=== PATIENT | female | born 1990 | race Caucasian/White ===

== ENCOUNTER → 2020-07-19 13:16 | Outpatient (BNVA) | payer OTHER, SELFPAY | PROVIDERS: Visit Provider Advanced Practice Midwife | DX: Z30.42 Encounter for surveillance of injectable contraceptive (principal) | CPT/HCPCS: 99211 ==

== ENCOUNTER → 2020-10-04 14:58 | Outpatient (BNVA) | payer OTHER, SELFPAY | PROVIDERS: PCP Internal Medicine; Visit Provider Advanced Practice Midwife | DX: Z30.42 Encounter for surveillance of injectable contraceptive (principal) | CPT/HCPCS: 96372; 99211; J1050 ==

== ENCOUNTER → 2020-10-27 14:43 | Outpatient (BNVA) | payer OTHER, SELFPAY | PROVIDERS: PCP Internal Medicine; Visit Provider Obstetrics & Gynecology | DX: Z76.89 Persons encountering health services in other specified circumstances (principal) | CPT/HCPCS: 99395 ==

== ENCOUNTER → 2020-12-20 11:04 | Outpatient (BNVA) | payer OTHER, SELFPAY | PROVIDERS: PCP Internal Medicine; Visit Provider Advanced Practice Midwife | DX: Z30.42 Encounter for surveillance of injectable contraceptive (principal) | CPT/HCPCS: 96372; J1050 ==

== ENCOUNTER → 2021-03-14 14:38 | Outpatient (BNVA) | payer OTHER, SELFPAY | PROVIDERS: PCP Internal Medicine; Visit Provider Advanced Practice Midwife | DX: Z30.42 Encounter for surveillance of injectable contraceptive (principal) | CPT/HCPCS: 96372; 99211 ==

== ENCOUNTER → 2021-06-09 11:03 | Outpatient (BNVA) | payer OTHER, SELFPAY | PROVIDERS: PCP Internal Medicine; Visit Provider Advanced Practice Midwife | DX: Z30.42 Encounter for surveillance of injectable contraceptive (principal) | CPT/HCPCS: 96372; 99211 ==

== ENCOUNTER → 2021-08-25 14:58 | Outpatient (BNVA) | payer OTHER, SELFPAY | PROVIDERS: PCP Internal Medicine; Visit Provider Advanced Practice Midwife | DX: Z30.42 Encounter for surveillance of injectable contraceptive (principal) | CPT/HCPCS: 96372; 99211 ==

== ENCOUNTER → 2021-10-27 14:10 | Outpatient (BNVA) | payer OTHER, SELFPAY | PROVIDERS: PCP Internal Medicine; Visit Provider Advanced Practice Midwife ==

== ENCOUNTER → 2021-11-15 15:08 | Outpatient (BNVA) | payer OTHER, SELFPAY | PROVIDERS: PCP Internal Medicine; Visit Provider Advanced Practice Midwife | DX: Z30.42 Encounter for surveillance of injectable contraceptive (principal) | CPT/HCPCS: 96372 ==

== ENCOUNTER → 2022-02-10 14:56 | Outpatient (BNVA) | payer OTHER, SELFPAY | PROVIDERS: PCP Internal Medicine; Visit Provider Advanced Practice Midwife | DX: Z30.42 Encounter for surveillance of injectable contraceptive (principal) | CPT/HCPCS: 96372; 99211 ==

== ENCOUNTER → 2022-05-11 14:54 | Outpatient (BNVA) | payer OTHER, SELFPAY | PROVIDERS: PCP Internal Medicine; Visit Provider Advanced Practice Midwife | DX: Z30.42 Encounter for surveillance of injectable contraceptive (principal) | CPT/HCPCS: 96372; 99211 ==

== ENCOUNTER → 2022-08-03 13:06 | Outpatient (BNVA) | payer OTHER, SELFPAY | PROVIDERS: PCP Internal Medicine; Visit Provider Advanced Practice Midwife | DX: Z30.42 Encounter for surveillance of injectable contraceptive (principal) | CPT/HCPCS: 96372; 99211 ==

== ENCOUNTER → 2022-10-30 15:00 | Outpatient (BNVA) | payer OTHER, SELFPAY | PROVIDERS: PCP Internal Medicine; Visit Provider Advanced Practice Midwife | DX: Z30.42 Encounter for surveillance of injectable contraceptive (principal) | CPT/HCPCS: 96372; 99211 ==

== ENCOUNTER → 2023-01-22 15:00 | Outpatient (BNVA) | payer OTHER, SELFPAY | PROVIDERS: PCP Internal Medicine; Visit Provider Advanced Practice Midwife | DX: Z30.42 Encounter for surveillance of injectable contraceptive (principal) | CPT/HCPCS: 96372; 99211 ==

== ENCOUNTER 2023-03-25 12:39 | Emergency (ER) | payer OTHER, SELFPAY ==
[2023-03-25 13:16] VITALS: BP 137/74; PULSE 84; RESP 18; TEMP 36.6; O2SAT 98; BMI 35.5
--- NOTE | 2023-03-25 13:17 | ED_ITS ---
HPI - General Adult General Chief complaint: Recheck/Abnormal Lab/Rx Stated complaint: Referred by doctor / blood work? Time Seen by Provider: 03/25/23 14:57 Source: patient and old records reviewed Mode of arrival: ambulatory Limitations: no limitations History of Present Illness HPI narrative: 32-year-old female presents to the ER for evaluation of low platelet count found on routine lab work that was done 2 days ago. Patient went to her PCP at [place] due to easy bruising for the last several months. She denies any bleeding. She does not get her menstrual cycle because she is on Depo for contraception. She denies any spontaneous nose bleeds, lightheadedness, dizziness, headaches, rectal bleeding or vaginal bleeding. Patient is a 1-year-old at home, as she recalls she had unremarkable lab work and a normal vaginal delivery 2 years ago. Her lab work from [place] was reviewed[place] [address]. Her H&H is normal. MD complaint: Low platelet count. Onset (ago): day(s) (2) Associated symptoms: other (Easy bruising) Treatments prior to arrival: none Related Data Previous Rx's Medication Instructions Recorded clotrimazole-betamethasone 1 1 appl topical BID PRN itching 7 10/27/21 %-0.05 % topical cream days #45 grams medroxyprogesterone 150 mg/mL 150 mg IM [id number] 12 weeks #1 mL 01/15/23 intramuscular suspension prednisone 10 mg tablets in a dose See Taper PO DAILY #48 ea 03/25/23 pack prednisone 10 mg tablets in a dose See Taper PO DAILY #48 ea 03/25/23 pack prednisone 20 mg tablet 80 mg PO DAILY 4 days #16 tabs 03/25/23 Allergies Allergy/AdvReac Type Severity Reaction Status Date / Time promethazine [From PHENERGAN] Allergy Unknown UNKNOWN Verified 03/25/23 13:15 Review of Systems Review of Systems: Yes all other systems are reviewed and are negative [facility] Social History Social History Alcohol intake: current Alcohol intake frequency: holidays/special occasions only Patient Tobacco Use Status: Never used Tobacco Substance Use Type: Marijuana Advance Directives: No Advance Directives Information Provided: No Sexual orientation: Straight/Heterosexual Physical Exam ED Vital Signs: Vital Signs - 24 hr 03/25/23 13:16 03/25/23 14:27 Temperature 98 F 98.6 F Pulse Rate 84 81 Respiratory Rate 18 18 Blood Pressure 137/74 136/92 H Pulse Oximetry 98 97 Oxygen Delivery Method Room Air Room Air BMI result Body Mass Index 35.5 Appearance: Alert. Oriented X3. No acute distress. Head: normocephalic, atraumatic. Eyes: Pupils equal, round and reactive to light. ENT: Pharynx normal. No tonsillar swelling or exudate. Neck: Normal inspection. Neck supple. CVS: Normal heart rate and rhythm. Pulses normal. Respiratory: No respiratory distress. Breath sounds normal. Abdomen: Soft and nontender. +BS x4 Skin: Skin warm and dry. Normal skin color. Normal skin turgor. No rashes. Extremities: No lower extremity edema. No joint swelling. Neuro/psych: Oriented X 3. No motor deficit. No sensory deficit. CN II-XII intact. Normal speech and cognition. Course Course Course Narrative: RME: 32 yold female sent by PCP for low platelets count. patient denies any bleeding from any orifices. Labs ordered. patient is stable Medications Administered Discontinued Medications Generic Name Dose Route Start Last Admin Trade Name Freq PRN Reason Stop Dose Admin Prednisone 80 mg 03/25/23 16:03 03/25/23 16:10 Prednisone 20 Mg Tablet PO 03/25/23 16:04 80 mg ONCE ONE Administration Medical Decision Making Medical Decision Making MDM Narrative: 32-year-old female presents to the ER for evaluation of severe thrombocytopenia on outpatient lab work. No bleeding. Normal H&H. Her repeat platelet count today was 17,000. She has small scattered ecchymosis on her upper extremities from her 2-year-old pinching her. Otherwise no signs of trauma or large ecchymotic areas. Case was discussed with insurance sales professional/oncologist Dr. Artis. Concern is for ITP. She recommended initiation of prednisone 1 mg/kg, with a slow taper over 3 weeks. Patient was educated and counseled on diagnosis and management, and need for close follow-up. She was also given strict return precautions. Differential Diagnosis Differential Diagnoses: The differential diagnosis associated with the presentation includes ITP, autoimmune thrombocytopenia, drug induced thrombocytopenia, acute leukemia less likely Admission/Observation Consideration of admission/observation: Escalation of care including admission/observation considered Severe thrombocytopenia, considered admission for observation and possible transfusion of platelets. Consult Healthcare Provider Management of the patient was discussed with: [facility] Keeper Spoke with Dr. Artis who recommended initiation of prednisone 1 milligram/kilogram with a slow taper for 3 weeks. Lab Data MDM Lab Attestation statement: I reviewed the patient's lab results. Severe thrombocytopenia with normal H&H 03/25/23 13:34 03/25/23 13:34 Labs: Lab Results 03/25/23 03/25/23 Range/Units 13:34 13:34 WBC 8.3 (4.8-10.8) X10*3/uL RBC 4.65 (4.20-5.50) X10*6/uL Hgb 13.0 (12.0-16.0) g/dl Hct 37.8 (37.0-47.0) % MCV 81.3 (80.0-98.0) fL MCH 28.0 (27.0-33.0) pg MCHC 34.4 (31.0-35.0) g/dl RDW 12.8 (11.0-16.0) % Plt Count 17 L* (160-400) X10*3/uL MPV Not Reportable Immature Gran % (Auto) 0.6 H (0.0-0.4) % Neut % (Auto) 61.6 (45-73) % Lymph % (Auto) 28.9 (20-40) % Duval % (Auto) 7.3 (2-11) % Eos % (Auto) 1.1 (0-4) % Baso % (Auto) 0.5 (0-2) % Lymph # (Auto) 2.4 (1.2-4.9) X10*3/uL Duval # (Auto) 0.6 (0.1-1.2) X10*3/uL Eos # (Auto) 0.1 (0.0-0.4) X10*3/uL Baso # (Auto) 0.0 (0.0-0.2) X10*3/uL Abs Immat Gran (auto) 0.05 H (0.00-0.03) X10*3/uL Absolute Neuts (auto) 5.1 (2.0-8.3) x10*3/uL Absolute Nucleated RBC 0.000 (0.0-0.012) X10*3/uL Nucleated RBC % (auto) 0.0 (0.0-0.2) /100WBC Sodium 145 (135-145) mmol/L Potassium 3.6 (3.3-5.1) mmol/L Chloride 111 H (96-108) mmol/L Carbon Dioxide 26 (22-29) mmol/L Anion Gap 12 (12-20) BUN 8 L (9-16) mg/dL Creatinine 0.68 (0.5-1.4) mg/dL Estim Creat Clear Calc 110.9 Estimated GFR > 60 Random Glucose 97 (60-115) mg/dL Calcium 9.3 (8.4-10.2) mg/dL Total Bilirubin 0.4 (0.0-1.0) mg/dL AST 12 (5-31) U/L ALT 20 (0-31) U/L Alkaline Phosphatase 82 (39-117) U/L Total Protein 7.2 (6.5-8.0) g/dL Albumin 4.2 (3.5-5.0) g/dL External Record Review External record reviewed: Office record Prescription Management I considered prescription management with: Other (Prednisone) Critical Care Time Critical Care Time Critical Care Time: Yes Total Critical Care Time: 35 Attestation: I have personally provided critical care time exclusive of time spent on separately billable procedures. Time includes review of lab data, discussion with consultants, and monitoring for potential decompensation. Intervention performed as documented. Discharge Plan Discharge Clinical Impression: Thrombocytopenia Patient Disposition: Home, Self-Care Instructions: Thrombocytopenia (ED) Additional Instructions: take the prescribed steroid medication as directed - take 80 mg daily and taper by 10 mg every 3 days. call heme/onc office tomorrow to arrange follow up If you develop new or worsening symptoms call 911 or come back to the ER for further evaluation. Prescriptions: New prednisone 20 mg tablet 80 mg PO DAILY 4 Days Qty: 16 0RF prednisone 10 mg tablets,dose pack See Taper PO DAILY Qty: 48 0RF Taper: Prednisone 70 mg daily for 3 Days and 0 Hour 60 mg daily for 3 Days and 0 Hour 50 mg daily for 1 Day prednisone 10 mg tablets,dose pack See Taper PO DAILY Qty: 48 0RF Taper: Prednisone 50 mg daily for 3 Days and 0 Hour 40 mg daily for 3 Days and 0 Hour 30 mg daily for 3 Days and 0 Hour 20 mg daily for 3 Days and 0 Hour 10 mg daily for 3 Days No Action medroxyprogesterone 150 mg/mL suspension 150 mg IM [id number] 84 Days Qty: 1 0RF medroxyprogesterone [Depo-Provera] 150 mg/mL syringe 150 mg IM Q12W Qty: 1 0RF clotrimazole-betamethasone 1-0.05 % cream 1 appl topical BID PRN (Reason: itching) 7 Days Qty: 45 0RF [place] [facility] [place]ology [Provider Group] (platelets 17K) Interventions: ED Discharge Assessment Last Done: 03/25/23 16:19 Discharge Date/Time: 03/25/23 16:19
[2023-03-25 13:40] LABS: MANUAL DIFF FLAG NO
[2023-03-25 14:01] LABS: Basophils Percent Auto 0.5 % (0-2); Eosinophils Absolute Auto 0.1 X10*3/uL (0.0-0.4); Eosinophils Percent Auto 1.1 % (0-4); Hematocrit 37.8 % (37.0-47.0); Imm Gran Abs Auto 0.05 X10*3/uL (0.00-0.03); Imm Gran Pct Auto 0.6 % (0.0-0.4); Lymphocytes Absolute Auto 2.4 X10*3/uL (1.2-4.9); Lymphocytes Percent Auto 28.9 % (20-40); Mean Corpuscular HGB Conc 34.4 g/dl (31.0-35.0); Mean Corpuscular Volume 81.3 fL (80.0-98.0); Monocytes Absolute Auto 0.6 X10*3/uL (0.1-1.2); Monocytes Percent Auto 7.3 % (2-11); Neutrophils Absolute Auto 5.1 x10*3/uL (2.0-8.3); Neutrophils Percent Auto 61.6 % (45-73); Red Blood Count 4.65 X10*6/uL (4.20-5.50); Red Cell Distribution Width 12.8 % (11.0-16.0); White Blood Count 8.3 X10*3/uL (4.8-10.8)
[2023-03-25 14:02] LABS: Alanine Aminotransferase 20 U/L (0-31); Albumin Level 4.2 g/dL (3.5-5.0); Alkaline Phosphatase 82 U/L (39-117); Anion Gap 12 (12-20); Aspartate Amino Transferase 12 U/L (5-31); Bilirubin Total 0.4 mg/dL (0.0-1.0); Blood Urea Nitrogen 8 mg/dL (9-16); Calcium 9.3 mg/dL (8.4-10.2); Carbon Dioxide 26 mmol/L (22-29); Chloride 111 mmol/L (96-108); Creatinine Clr Calc Pharmacy 110.9; Estimated Glomerular Filt Rate > 60; Glucose Random 97 mg/dL (60-115); Potassium 3.6 mmol/L (3.3-5.1); Sodium 145 mmol/L (135-145); Total Protein 7.2 g/dL (6.5-8.0)
[2023-03-25 14:06] LABS: Platelet Count 17 X10*3/uL (160-400)
[2023-03-25 14:27] VITALS: BP 136/92; PULSE 81; RESP 18; TEMP 37; O2SAT 97
--- NOTE | 2023-03-25 15:16 | PC.NURSE ---
pt sitting in bed, resting. respirations equal and unlabored.
== END 2023-03-25 16:19 | disposition home or self-care (01) ==
PROVIDERS: Physician Assistant; Emergency Provider Emergency Medicine; PCP Internal Medicine
DX: D69.49 Other primary thrombocytopenia (principal); Z79.899 Other long term (current) drug therapy
CPT/HCPCS: 36415; 80053; 85025; 99284

== ENCOUNTER 2023-04-05 15:17 | Outpatient (REF) | payer OTHER, SELFPAY ==
[2023-04-05 15:36] LABS: MANUAL DIFF FLAG NO
[2023-04-05 15:55] LABS: Basophils Percent Auto 0.2 % (0-2); Hematocrit 41.5 % (37.0-47.0); Hemoglobin 14.1 g/dl (12.0-16.0); Imm Gran Abs Auto 0.12 X10*3/uL (0.00-0.03); Imm Gran Pct Auto 0.6 % (0.0-0.4); Lymphocytes Absolute Auto 1.4 X10*3/uL (1.2-4.9); Lymphocytes Percent Auto 7.1 % (20-40); Mean Corpuscular Hemoglobin 28.4 pg (27.0-33.0); Mean Corpuscular Volume 83.5 fL (80.0-98.0); Mean Platelet Volume 12.6 fL (9.4-12.3); Monocytes Absolute Auto 0.4 X10*3/uL (0.1-1.2); Monocytes Percent Auto 2.1 % (2-11); Neutrophils Absolute Auto 17.2 x10*3/uL (2.0-8.3); Red Blood Count 4.97 X10*6/uL (4.20-5.50); Red Cell Distribution Width 13.9 % (11.0-16.0); White Blood Count 19.1 X10*3/uL (4.8-10.8)
[2023-04-05 16:07] LABS: Platelet Count 43 X10*3/uL (160-400)
[2023-04-05 16:49] LABS: Lactate Dehydrogenase 237 U/L (122-220)
[2023-04-05 17:18] LABS: Folate 14.3 ng/mL (> or = 4.0); Vitamin B12 329 pg/mL (200-900)
== END 2023-04-05 15:18 | disposition home or self-care (01) ==
LOC: HO.LAB 15:17
PROVIDERS: PCP Internal Medicine; Visit Provider Internal Medicine
DX: D69.6 Thrombocytopenia, unspecified (principal)
CPT/HCPCS: 36415; 82607; 82746; 83615; 85025

== ENCOUNTER 2023-04-18 12:46 | Outpatient (AMB) | payer OTHER, SELFPAY ==
--- NOTE | 2023-04-18 12:47 | A.OFFVIS_ITS ---
Intake Intake Visit Reasons: TV follow up [phone] work # Intake Note: [phone] option 1 then 3 The patient agreed to use of a quality engineer medical device during this encounter. Scribed for RUBI Garcia by Soco Dowell, quality engineer medical device, on 04/18/2023 at 12:53 pm EST. Allergies promethazine [From PHENERGAN] Allergy (Unknown, Verified 04/18/23 12:47) UNKNOWN HPI HPI Comments History of Present Illness Details Telehealth visit 12:53 pm -12:58 pm. Phone Call due to Covid-19 Pandemic. She presents via phone for medical review for Depo Provera refills due to annual examination postponements. Last annual 10/2021. Doing well on Depo, other than occasional spotting. Next Depo due by 04/23/23. She denies any contraindications to control such as: migraines with aura, history of DVT or pulmonary emboli, high blood pressure, liver disease, thrombolic disorders, Lupus, +ZOË, or smoking. [facility] Medical History (Updated 04/18/23 @ 12:55 by Soco Dowell) Surveillance for Depo-Provera contraception Social History Alcohol intake: current Alcohol intake frequency: holidays/special occasions only Patient Tobacco Use Status: Never used Tobacco Substance Use Type: Marijuana Sexual orientation: Straight/Heterosexual Female Reproductive History Menstrual Age of Menarche: 8 control method: progesterone injection Total pregnancies: 0 Physical Exam Const General: cooperative, healthy appearing, comfortable, no acute distress, well developed, alert and awake Assessment & Plan Assessment & Plan (1) Surveillance for Depo-Provera contraception: Code(s): Z30.42 - Encounter for surveillance of injectable contraceptive Plan: Discussed: Schedule Depo injection appointment. Order placed, new refills to be given at the next annual, appt. in May, move up annual appt. if availalbe appt. She was instructed to go to ER if she develops loss of vision, severe headache that does not resolve, chest pain, difficulty breathing, abdominal pain, or severe pain or tenderness in extremity or new breast lumps. Call the office with any concerns. All of her questions and concerns were addressed to the best of my ability and shared decision making. She is agreeable to plan of care. Telehealth Telehealth Location of provider rendering services: practice address Location of patient: other Patient Identification confirmed using: Name, : Yes Telehealth method: voice only Patient verbally consented to treatment: Yes Patient verbally consented to billing insurance company: Yes Patient informed of any privacy concerns related to visit: Yes Coding Level of Care Code Tele Est Pt Level 2 (54450) Diagnoses Surveillance for Depo-Provera contraception Z30.42
== END 2023-04-18 14:29 | disposition home or self-care (01) ==
LOC: HO.HWS 12:46
PROVIDERS: PCP Internal Medicine; Visit Provider Advanced Practice Midwife
DX: Z30.42 Encounter for surveillance of injectable contraceptive (principal)
CPT/HCPCS: 99212

== ENCOUNTER → 2023-04-18 12:46 | Outpatient (BNVA) | payer OTHER, SELFPAY | PROVIDERS: PCP Internal Medicine; Visit Provider Advanced Practice Midwife ==

== ENCOUNTER 2023-04-19 07:52 | Outpatient (AMB) | payer OTHER, SELFPAY ==
--- NOTE | 2023-04-19 07:55 | A.OFFVIS_ITS ---
Intake Vital Signs 04/19/23 07:57 Height 5 ft Weight 183 lb BMI 35.7 BP 110/76 Intake Visit Reasons: Annual/Depo Intake Note: The patient agreed to use of a medical laboratory manager during this encounter. Scribed for RUBI Garcia by Soco Dowell medical laboratory manager, on 04/19/2023 at 8:09 am EST. Data Input Clerk: Data Input Clerk Present (Neha) Allergies promethazine [From PHENERGAN] Allergy (Unknown, Verified 04/19/23 08:01) UNKNOWN HPI HPI Comments History of Present Illness Details She is a premenopausal woman presenting for annual exam. She had a recent diagnosis of thrombocytopenia and has a hematology follow up on 05/09. She admits to eating healthy and tries to stay active with exercise. Currently sexually active. Uses Depo for BC and is doing fine. Admits vaginal itching. STD screening and blood work offered; she accepts. Denies family hx of breast, colon and ovarian cancer. Last pap smear 10/15/19; negative, negative. She denies any contraindications to control such as: migraines with aura, history of DVT or pulmonary emboli, high blood pressure, liver disease, thrombolic disorders, Lupus, +ZOË, or smoking. Reviewed use, side effects and warnings including ACHES. [facility] Medical History Cervical polyp Surveillance for Depo-Provera contraception Thrombocytopenia Family History Maternal Grandmother Diabetes Mother Diabetes Social History Alcohol intake: current Alcohol intake frequency: holidays/special occasions only Patient Tobacco Use Status: Never used Tobacco Substance Use Type: Marijuana Sexual orientation: Straight/Heterosexual Female Reproductive History Menstrual Age of Menarche: 8 control method: progesterone injection Total pregnancies: 4 Full term: 3 Number of Living Children: 3 Ab spontaneous: 1 Date of last pap smear: 10/15/19 (neg pap and hpv) Physical Exam Vital Signs: Last Vital Signs BP 110/76 04/19/23 07:57 BMI result Body Mass Index 35.7 Const General: cooperative, healthy appearing, no acute distress, well developed and alert Orientation/consciousness: patient oriented x3 HEENT Head: Yes normal to inspection Eyes General: appearance normal, both eyes and all related structures Neck Neck: Yes normal visual inspection Thyroid: Thyroid normal Chest Chest palpation & inspection: normal inspection of the chest Breast/axilla inspection: normal inspection of the breasts (no puckering, dimpling, peau de orange, retraction, discharge, masses) Breast/axilla palpation: normal palpation of the breasts Resp Effort & Inspection: normal respiratory effort GI Inspection: Yes normal to inspection Palpation (GI): Soft to palpation (to palpation) Rectal Exam - Female: deferred General: Yes bladder normal to inspection External Female Exam: normal external appearance and normal appearance of the urethra Speculum Exam - Vagina: normal appearance of the vagina, normal palpation and normal vaginal discharge Speculum Exam - Cervix: normal palpation and Other cervical findings present (cervical polyp) Bimanual exam- vagina & uterus: normal palpation and normal palpation Bimanual Exam- Adnexa, other: normal adnexae and no masses Skin Other: multiple bruising on extremities General skin exam: no rashes or lesions noted Neuro General: patient oriented x3 Cognition (Neuro): normal cognition Extrem General: Yes normal to inspection Psych Attitude: cooperative Thought process: Normal thought process present Assessment & Plan Assessment & Plan (1) Encounter for annual routine gynecological examination: Code(s): Z01.419 - Encounter for gynecological examination (general) (routine) without abnormal findings Plan: Discussed: Current recommendations for pap smears per ASCCP guidelines Breast awareness and periodic self breast exams. Maintaining a healthy lifestyle including a well balanced diet and routine exercise. Consult with Dr. Celis regarding cervical polyp. Lab work ordered. BV testing and GC/CT panel today. STD blood work ordered. Await results and treat accordingly. Instructed to monitor periods and contact the office with any concerns. Rx for Depo sent to pharmacy. Instructed to sheepskin pickler rx and bring to office with her. She was instructed to go to ER if she develops loss of vision, severe headache that does not resolve, chest pain, difficulty breathing, abdominal pain, or severe pain or tenderness in extremity or new breast lumps. Call the office with any concerns. All of her questions and concerns were addressed to the best of my ability. RTO in one year for AG. (2) Surveillance for Depo-Provera contraception: Code(s): Z30.42 - Encounter for surveillance of injectable contraceptive (3) Vaginal itching: Code(s): N89.8 - Other specified noninflammatory disorders of vagina (4) Cervical polyp: Code(s): N84.1 - Polyp of cervix uteri (5) Thrombocytopenia: Code(s): D69.6 - Thrombocytopenia, unspecified (6) Thrombocytopenia: Code(s): D69.6 - Thrombocytopenia, unspecified Orders: Orders Bacterial Vaginosis Panel Today N89.8 - Other specified noninflammatory disorders of vagina CT NG by PCR Today N89.8 - Other specified noninflammatory disorders of vagina, Z20.2 - Contact with and (suspected) exposure to infections with a predominantly sexual mode of transmission Medications: Refilled medroxyprogesterone 150 mg IM [id number] 1 mL 4RF 12 weeks Coding Level of Care Code Est Pt Prev Care 18-39y(63774) Diagnoses Encounter for annual routine gynecological examination Z01.419 Surveillance for Depo-Provera contraception Z30.42 Vaginal itching N89.8 Cervical polyp N84.1 Thrombocytopenia D69.6
[2023-04-19 07:57] VITALS: BP 110/76; BMI 35.7
== END 2023-04-19 09:00 | disposition home or self-care (01) ==
LOC: HO.HWS 07:52
PROVIDERS: PCP Internal Medicine; Visit Provider Advanced Practice Midwife
DX: Z01.419 Encounter for gynecological examination (general) (routine) without abnormal findings (principal); N89.8 Other specified noninflammatory disorders of vagina; N84.1 Polyp of cervix uteri; D69.6 Thrombocytopenia, unspecified
CPT/HCPCS: 99395

== ENCOUNTER 2023-04-19 07:52 | Outpatient (REF) | payer OTHER, SELFPAY ==
[2023-04-20 03:04] LABS: CT PCR NOT DETECTED (Not Detect.); NG PCR NOT DETECTED (Not Detect.)
[2023-04-20 09:36] LABS: BV Int Neg Control Negative (Negative); BV Int Pos Control Positive (Positive)
== END 2023-04-19 07:53 | disposition home or self-care (01) ==
LOC: HO.LNP 07:52
PROVIDERS: PCP Internal Medicine; Visit Provider Advanced Practice Midwife
DX: N89.8 Other specified noninflammatory disorders of vagina (principal); Z20.2 Contact with and (suspected) exposure to infections with a predominantly sexual mode of transmission; N84.1 Polyp of cervix uteri; D69.6 Thrombocytopenia, unspecified
CPT/HCPCS: 0353U; 87480; 87510; 87660

== ENCOUNTER 2023-04-19 08:41 | Outpatient (REF) | payer OTHER, SELFPAY | END 2023-04-19 08:42 | disposition home or self-care (01) | LOC: HO.LAB 08:41 | PROVIDERS: Visit Provider Advanced Practice Midwife | DX: Z13.89 Encounter for screening for other disorder (principal) ==

== ENCOUNTER 2023-04-23 15:07 | Outpatient (AMB) | payer OTHER, SELFPAY ==
--- NOTE | 2023-04-23 15:29 | AM.OFFVISNUR ---
Intake Intake Visit Reasons: Depo Allergies promethazine [From PHENERGAN] Allergy (Unknown, Verified 04/19/23 08:01) UNKNOWN Coding Diagnoses
--- NOTE | 2023-04-23 15:29 | AM.OFFVISNUR ---
Intake Vital Signs 04/23/23 15:30 Height 5 ft Weight 82.157 kg BMI 35.4 Intake Visit Reasons: Depo Allergies promethazine [From PHENERGAN] Allergy (Unknown, Verified 04/19/23 08:01) UNKNOWN Nursing Note Pt is here for Depo-Provera restart. Preg test neg. Pt recently diagnosed with thrombocytopenia. Pressure dsg applied. Pt watched for 15 min. No active bleeding. 1 tiny drop on bandaid prior to pressure dsg placed as precaution. Office Procedures Depo Questionnaire If YES to any of the following questions, please consult a provider. Date of last injection: 04/23/23 test in office results: Negative Irregular bleeding?: No Breast lumps or other breast changes?: No Changes in weight or appetite?: No Depression or changes in mood?: No Abnormal hair growth or loss?: No Skin problems (rash, acne, discoloration)?: No Pain at the injection site?: No Headaches?: No Nervousness?: No Abdominal pain or cramping?: No Dizziness or nausea?: No Fatigue or weakness?: No Decrease in sexual drive?: No Chest pain or shortness of breath?: No Swelling in arms or legs?: No Form completed by?: Jaycee Ritter LPN Office Meds Depo-Provera Performing Provider: Celeste Pino CNM Administered by: Maryana Ritter LPN on 04/23/23 15:32 Dose Route Admin Location Lot Number Expiration Date NDC [employer] 150 mg IM left deltoid [id number] 06/16/25 [id number] [facility] Results AMB Test Urine AMB Test Urine Negative Last Edit by Maryana Ritter LPN on 04/23/23 15:36 Coding Level of Care Code Established Pt Est Pt Level 1 (28018) Patient Type Established History Problem Focused Exam Problem Focused Medical Decision Making Straight Forward Diagnoses Time Spent (min) 25 Assessment & Plan Assessment & Plan Orders: Orders AMB Medroxyprogesterone Injection Patient Supplied Today Z30.42 - Encounter for surveillance of injectable contraceptive
[2023-04-23 15:30] VITALS: BMI 35.4
== END 2023-04-23 16:22 | disposition home or self-care (01) ==
LOC: HO.HWS 15:07
PROVIDERS: PCP Internal Medicine; Visit Provider Advanced Practice Midwife
DX: Z30.42 Encounter for surveillance of injectable contraceptive (principal)

== ENCOUNTER → 2023-04-23 15:07 | Outpatient (BNVA) | payer OTHER, SELFPAY | PROVIDERS: PCP Internal Medicine; Visit Provider Advanced Practice Midwife | DX: Z30.42 Encounter for surveillance of injectable contraceptive (principal) | CPT/HCPCS: 96372; 99211; J1050 ==

== ENCOUNTER → 2023-05-09 08:52 | Outpatient (BNV) | payer OTHER, SELFPAY | PROVIDERS: PCP Internal Medicine; Referring Provider Internal Medicine; Visit Provider Internal Medicine | DX: D69.6 Thrombocytopenia, unspecified (principal) | CPT/HCPCS: 99204 ==

== ENCOUNTER 2023-05-10 10:59 | Outpatient (REF) | payer OTHER, SELFPAY | END 2023-05-10 11:00 | disposition home or self-care (01) | LOC: HO.MDS 10:59 | PROVIDERS: PCP Internal Medicine; Visit Provider Internal Medicine | DX: D69.3 Immune thrombocytopenic purpura (principal) | CPT/HCPCS: 96365; 96366; J1569 ==

== ENCOUNTER → 2023-10-22 10:57 | Outpatient (BNVA) | payer OTHER, SELFPAY | PROVIDERS: PCP Internal Medicine; Visit Provider Advanced Practice Midwife ==

== ENCOUNTER 2023-10-24 09:29 | Outpatient (AMB) | payer OTHER, SELFPAY ==
--- NOTE | 2023-10-24 09:30 | A.OFFVIS_ITS ---
Intake Vital Signs 10/24/23 09:31 Height 5 ft Weight 196 lb BMI 38.3 BP 102/66 Intake Visit Reasons: restart DEPO Intake Note: Would like to restart depo Estate Planning Paralegal Required: No Allergies promethazine [From PHENERGAN] Allergy (Intermediate, Verified 10/24/23 09:32) Agitated Medication List - Last Reconciled 10/24/23 by Karlee Jovel CNM cyanocobalamin (vitamin B-12) 1,000 mcg PO DAILY medroxyprogesterone 150 mg IM [id number] 12 weeks Post menopausal: No HPI restart DEPO HPI Details Patient is here for Depo restart consult. She missed her last Depo because she was in the hospital at [facility] she then went to the office when her next Depo was due in September and she said there was an appointment mix up and because they did not have the records they were unable to give her the Depo and she had records from [facility] but they did not include the giving of the Depo- Provera she went back to [facility] got those records gave them to Alexandrea recently and they have been scanned into the chart now and I have found them. The patient says she was hospitalized for bruising and she turned out to have very low platelets and she received transfusions and per the records she also received IV platelets and IV steroids. She was given the Depo-Provera 1 week early because she was also bleeding at the time. Her Depo-Provera dates are as follows April 23 then July 08 at [facility] in the hospital at 11 weeks, and she would have been due for the next Depo October 01. She is now 3 weeks later than that her last unprotected intercourse was October 16 she says she does not have sex very often and because it is with the same partner she does not use condoms. She does not want to have a baby she also is on antibiotics for a stomach bacteria H pylori. She said that they did not see a polyp in her cervix when they were checking her for the bleeding cause when she was in the hospital at [facility]. She also says she had a Mirena IUD after the of her daughter but it fell out she thinks it was put in about a month . She was thinking about getting her tubes tied. She is undergoing treatment for the thrombocytopenia with weekly injections from Hematology. I did discuss with her that she might be considered high risk for surgery at this particular point in time and consideration for a Mirena IU S might be a better long-term way to go. This can be considered further after we get her protected from with a re start of her Depo-Provera. test is negative today. We can see her again in 6 days on October 30 and if the test is again negative that will be 2 weeks of negative after the last unprotected intercourse which she says she will refrain from, and then she can receive Depo-Provera on October 30. I also cautioned that she will need to use condoms for the 2 weeks after that until the Depo- Provera as fully effective again. She is in agreement with this plan. [facility] Medical History (Updated 10/24/23 @ 10:26 by Karlee Jovel CNM) Thrombocytopenia Cervical polyp Surveillance for Depo-Provera contraception Family History Maternal Grandmother Diabetes Mother Diabetes Social History Household Members: Children Housing: House Alcohol intake: current Alcohol intake frequency: holidays/special occasions only Patient Tobacco Use Status: Never used Tobacco Substance Use Type: Marijuana service: No Current occupational status: employed Sexual orientation: Straight/Heterosexual Female Reproductive History Menstrual Age of Menarche: 8 control method: none Total pregnancies: 4 Full term: 3 Number of Living Children: 3 Ab spontaneous: 1 Date of last pap smear: 10/16/19 (negative) Physical Exam Vital Signs: Last Vital Signs BP 102/66 10/24/23 09:31 BMI result Body Mass Index 38.3 Results Reviewed Results Reviewed: Preg test negative Also reviewed the note from July 08 from [facility] inpatient citing her course with the thrombocytopenia and treatment with transfusion IV platelets and steroids and Depo-Provera.. Assessment & Plan Assessment & Plan (1) Thrombocytopenia: Code(s): D69.6 - Thrombocytopenia, unspecified (2) Surveillance for Depo-Provera contraception: Comment: See details of notes for restart...10/24/23 Code(s): Z30.42 - Encounter for surveillance of injectable contraceptive (3) Contraception management: Comment: Will restart Depo-Provera after 2 weeks of no UPI, and negative preg test. Consideration to use of Mirena long-term recommended... Code(s): Z30.9 - Encounter for contraceptive management, unspecified Plan Patient is here for Depo restart consult. She missed her last Depo because she was in the hospital at [facility] she then went to the office when her next Depo was due in September and she said there was an appointment mix up and because they did not have the records they were unable to give her the Depo and she had records from [facility] but they did not include the giving of the Depo-Provera she went back to [facility] got those records gave them to Alexandrea recently and they have been scanned into the chart now and I have found them. The patient says she was hospitalized for bruising and she turned out to have very low platelets and she received transfusions and per the records she also received IV platelets and IV steroids. She was given the Depo-Provera 1 week early because she was also bleeding at the time. Her Depo-Provera dates are as follows April 23 then July 08 at [facility] in the hospital at 11 weeks, and she would have been due for the next Depo October 01. She is now 3 weeks later than that her last unprotected intercourse was October 16 she says she does not have sex very often and because it is with the same partner she does not use condoms. She does not want to have a baby she also is on antibiotics for a stomach bacteria H pylori. She said that they did not see a polyp in her cervix when they were checking her for the bleeding cause when she was in the hospital at [facility]. She also says she had a Mirena IUD after the of her daughter but it fell out she thinks it was put in about a month . She was thinking about getting her tubes tied. She is undergoing treatment for the thrombocytopenia with weekly injections from Hematology. I did discuss with her that she might be considered high risk for surgery at this particular point in time and consideration for a Mirena IU S might be a better long-term way to go. This can be considered further after we get her protected from with a re start of her Depo-Provera. test is negative today. We can see her again in 6 days on October 30 and if the test is again negative that will be 2 weeks of negative after the last unprotected intercourse which she says she will refrain from, and then she can receive Depo-Provera on October 30. I also cautioned that she will need to use condoms for the 2 weeks after that until the Depo- Provera as fully effective again. She is in agreement with this plan. Medications: Refilled medroxyprogesterone 150 mg IM [id number] 12 weeks 1 mL 4RF Coding Level of Care Code Est Pt Level 3 (06815) Diagnoses Thrombocytopenia D69.6 Surveillance for Depo-Provera contraception Z30.42 Contraception management Z30.9
[2023-10-24 09:31] VITALS: BP 102/66; BMI 38.3
== END 2023-10-24 10:22 | disposition home or self-care (01) ==
LOC: HO.HWSM 09:29
PROVIDERS: PCP Internal Medicine; Visit Provider Advanced Practice Midwife
DX: D69.6 Thrombocytopenia, unspecified (principal); Z30.42 Encounter for surveillance of injectable contraceptive; Z30.9 Encounter for contraceptive management, unspecified
CPT/HCPCS: 99213

== ENCOUNTER → 2023-10-24 09:29 | Outpatient (BNVA) | payer OTHER, SELFPAY | PROVIDERS: PCP Internal Medicine; Visit Provider Advanced Practice Midwife | DX: Z30.42 Encounter for surveillance of injectable contraceptive (principal); D69.6 Thrombocytopenia, unspecified; Z30.9 Encounter for contraceptive management, unspecified | CPT/HCPCS: 99212 ==

== ENCOUNTER 2023-10-31 15:07 | Outpatient (AMB) | payer OTHER, SELFPAY ==
[2023-10-31 16:02] VITALS: BMI 39.3
--- NOTE | 2023-10-31 16:02 | AM.OFFVISNUR ---
Intake Vital Signs 10/31/23 16:02 Height 5 ft Weight 201 lb BMI 39.3 Intake Visit Reasons: DEPO Intake Note: Pt is here for Depo provera restart Hadoop Admin Required: No Allergies promethazine [From PHENERGAN] Allergy (Intermediate, Verified 10/24/23 09:32) Agitated Is last menstrual period known: No Post menopausal: No Patient : No Nursing Note Armida is here for Depo provera restart. Pt denies UPI in last 2 weeks and UPT today is negative. No c/o. Pt tolerated injection well. Pt was advised to use back up method of control x2 weeks. Pt verbalizes understanding and agrees with plan. No further questions. Pt will schedule next injection in 12 weeks. Office Procedures Depo Questionnaire If YES to any of the following questions, please consult a provider. Menstrual pattern since last injection has been: Not Applicable test in office results: Negative Irregular bleeding?: No Breast lumps or other breast changes?: No Changes in weight or appetite?: No Depression or changes in mood?: No Abnormal hair growth or loss?: No Skin problems (rash, acne, discoloration)?: No Pain at the injection site?: No Headaches?: No Nervousness?: No Abdominal pain or cramping?: No Dizziness or nausea?: No Fatigue or weakness?: No Decrease in sexual drive?: No Chest pain or shortness of breath?: No Swelling in arms or legs?: No Form completed by?: Maryam Wallace RN Office Meds Depo-Provera 150 mg/mL intramuscular syringe Performing Provider: Kj Celis MD Performing Location[place] [facility] [place] [facility] Administered by: Maryam Wallace on 10/31/23 16:09 Dose Route Admin Location Dispensed Lot Number Expiration Date [facility] V[employer] 150 mg IM left deltoid 1 mL [id number] 12/15/25 56366-293-46 [facility] Results AMB Test Urine AMB Test Urine Negative Last Edit by Maryam Wallace on 10/31/23 16:09 Coding Level of Care Code Established Pt Est Pt Level 1 (52735) Patient Type Established History Problem Focused Medical Decision Making Straight Forward Time Spent (min) 15 Comment Assessment & Plan Assessment & Plan Orders: Orders AMB Medroxyprogesterone Injection Patient Supplied Today Z30.42 - Encounter for surveillance of injectable contraceptive
== END 2023-10-31 16:13 | disposition home or self-care (01) ==
PROVIDERS: PCP Internal Medicine; Visit Provider Obstetrics & Gynecology
DX: Z30.42 Encounter for surveillance of injectable contraceptive (principal)

== ENCOUNTER → 2023-10-31 15:07 | Outpatient (BNVA) | payer OTHER, SELFPAY | PROVIDERS: PCP Internal Medicine; Visit Provider Obstetrics & Gynecology | DX: Z30.42 Encounter for surveillance of injectable contraceptive (principal) | CPT/HCPCS: 96372; 99211; J1050 ==

== ENCOUNTER 2023-12-20 16:08 | Outpatient (AMB) | payer OTHER, SELFPAY ==
--- NOTE | 2023-12-20 16:18 | A.OFFVIS_ITS ---
Intake Vital Signs 12/20/23 16:19 Height 5 ft Weight 201 lb BMI 39.3 BP 122/72 Blood Pressure Location Lt brachial Position Sitting Intake Visit Reasons: Cervical Polyp consult per Celeste Compliance Field Technician Required: No Information Interpreted: non-clinical & clinical Tobacco Prizer: Tobacco Prizer Present Accompanied by: Self / Same As Patient Allergies promethazine [From PHENERGAN] Allergy (Intermediate, Verified 12/20/23 16:19) Agitated Is last menstrual period known: Yes Last menstrual period: 07/15/20 Post menopausal: No Patient : No Do you need a note to return to daycare/school/sports/work: Yes (for surgery on sunday) HPI HPI Comments History of Present Illness Details Presenting referred from Celeste Pino CNM regarding cervical polyp identified on pelvic exam. The patient is not having any complaints no abnormal uterine bleeding pelvic pain or postcoital bleeding. Past co testing in 10/06 was negative [facility] Medical History Thrombocytopenia Cervical polyp Surveillance for Depo-Provera contraception Family History Maternal Grandmother Diabetes Mother Diabetes Social History Household Members: Children Housing: House Alcohol intake: current Alcohol intake frequency: holidays/special occasions only Patient Tobacco Use Status: Never used Tobacco Substance Use Type: Marijuana service: No Current occupational status: employed Sexual orientation: Straight/Heterosexual Female Reproductive History Menstrual Age of Menarche: 8 Date of last menstrual period: 07/15/20 Total pregnancies: 2 Full term: 2 Review of Systems Const All systems reviewed & are unremarkable except as noted in HPI and below Card Reports as per HPI and Reports no additional complaints Resp Reports as per HPI and Reports no additional complaints GI Reports as per HPI and Reports no additional complaints Reports as per HPI Physical Exam Const General: cooperative, healthy appearing and comfortable Chest Chest palpation & inspection: normal inspection of the chest and normal palpation of entire chest wall Breast/axilla inspection: normal inspection of the breasts and normal inspection of the axillae Breast/axilla palpation: normal palpation of the breasts, normal palpation of the axillae and no axillary lymphadenopathy Resp Effort & Inspection: normal respiratory effort Auscultation: clear to auscultation bilaterally Percussion: percussion normal Cardio Palpation: normal PMI Rate: regular rate Rhythm: regular rhythm Heart sounds: no murmurs and no rubs Peripheral pulses: Peripheral pulses 2+ throughout GI Inspection: Yes normal to inspection Palpation (GI): Soft to palpation, nontender, no guarding, not rigid and No hepatosplenomegaly present Percussion: Yes normal to percussion Auscultation: normal bowel sounds Rectal Exam - Female: deferred General: Yes no CVA tenderness External Female Exam: normal external appearance and normal appearance of the urethra Speculum Exam - Vagina: normal appearance of the vagina, normal palpation, no lesions and no masses Speculum Exam - Cervix: normal appearance of the cervix, normal palpation, no lesions, no masses, nontender and Other cervical findings present (Endocervical polyp) Bimanual exam- vagina & uterus: normal bimanual exam, normal palpation, uterine size normal, normal palpation, uterine shape normal, No Cervical tenderness present and non-tender Bimanual Exam- Adnexa, other: normal adnexae Back/Spine/Pelvis Back: no CVA tenderness Office Procedures FACE PAINTER Biopsy Before the procedure was started, discussed with the patient the procedure technique, alternatives & all the risks associated with the procedure including but not limited to: bleeding , infection, uterine perforation, injury to bladder, vessels, bowels, possible need for transfusion with all its risks, and others. All questions were answered, the patient verbalized understanding and signed the consent. Urine test done in the office was negative Using a long Maye Clamp the endocervical polyp was unable to be grasped since it is deep in the endocervical canal and the patient could not tolerate the procedure , the procedure was aborted and hemostasis was secured using pressure. Instructions were given to the patient to call if bleeding, temp>100.4 occur. The patient verbalized understanding and agreed with the plan. This note was generated with a voice recognition program. Some errors may have been overlooked during the review of this note. Sometimes these errors may affect the content or meaning of a given sentence. Procedure code (CPT) selection complete Results AMB Test Urine AMB Test Urine Negative Last Edit by Migdalia Waggoner MA on 12/20/23 16:21 Assessment & Plan Assessment & Plan (1) Endocervical polyp: Code(s): N84.1 - Polyp of cervix uteri Plan: Discussed with the patient that endocervical polypectomy was attempted but was aborted secondary to discomfort , recommended schedule office polypectomy under paracervical block with Tylenol 650 mg p.o. 1 hour prior to procedure. All questions answered, the patient verbalized understanding Instructions given the patient to schedule office polypectomy under paracervical block within 1-2 weeks Orders: Orders AMB FACE PAINTER Biopsy Today N84.1 - Polyp of cervix uteri AMB HCG Urine Test Today Z32.02 - Encounter for test, result negative Coding Level of Care Code Est Pt Level 3 (40890) Diagnoses Endocervical polyp N84.1
[2023-12-20 16:19] VITALS: BP 122/72; BMI 39.3
== END 2023-12-20 17:05 | disposition home or self-care (01) ==
LOC: HO.HWS 16:08
PROVIDERS: PCP Internal Medicine; Visit Provider Obstetrics & Gynecology
DX: N84.1 Polyp of cervix uteri (principal); Z32.02 Encounter for pregnancy test, result negative
CPT/HCPCS: 99213

== ENCOUNTER → 2023-12-20 16:08 | Outpatient (BNVA) | payer OTHER, SELFPAY | PROVIDERS: PCP Internal Medicine; Visit Provider Obstetrics & Gynecology | DX: N84.1 Polyp of cervix uteri (principal); D69.6 Thrombocytopenia, unspecified; Z32.02 Encounter for pregnancy test, result negative | CPT/HCPCS: 81025; 99212 ==

== ENCOUNTER 2024-01-29 14:34 | Outpatient (AMB) | payer OTHER, SELFPAY ==
--- NOTE | 2024-01-29 14:46 | AM.OFFVISNUR ---
Intake Vital Signs 01/29/24 14:49 Height 5 ft Weight 92.533 kg BMI 39.8 Intake Visit Reasons: Depo Allergies promethazine [From PHENERGAN] Allergy (Intermediate, Verified 12/20/23 16:19) Agitated Nursing Note Armida is here for her scheduled Depo_provera INj. She denies any problems with the Depo-Provera. She is scheduled for her AG in 05/10. Pt aware she needs her next inj in 12 wks. Office Procedures Depo Questionnaire If YES to any of the following questions, please consult a provider. Date of last injection: 10/31/23 Date of last gynecology exam: 04/19/23 Menstrual pattern since last injection has been: Not Applicable Irregular bleeding?: No Breast lumps or other breast changes?: No Changes in weight or appetite?: No Depression or changes in mood?: No Abnormal hair growth or loss?: No Skin problems (rash, acne, discoloration)?: No Pain at the injection site?: No Headaches?: No Nervousness?: No Abdominal pain or cramping?: No Dizziness or nausea?: No Fatigue or weakness?: No Decrease in sexual drive?: No Chest pain or shortness of breath?: No Swelling in arms or legs?: No Form completed by?: Jaycee Ritter LPN Office Meds Depo-Provera 150 mg/mL intramuscular syringe Performing Provider: Karlee Jovel CNM [place] [facility] [place] [facility] Administered by: Maryana Ritter LPN on 01/29/24 14:47 Dose Route Admin Location Dispensed Lot Number Expiration Date [facility] [employer] 150 mg IM left deltoid 1 mL [id number] 12/15/25 93591-073-02 [facility] Coding Level of Care Code Established Pt Est Pt Level 1 (76653) Patient Type Established History Problem Focused Exam Problem Focused Medical Decision Making Straight Forward Time Spent (min) 20 Assessment & Plan Assessment & Plan Orders: Orders AMB Medroxyprogesterone Injection Patient Supplied Today Z30.42 - Encounter for surveillance of injectable contraceptive Medications: New Depo-Provera (medroxyprogesterone) 150 mg IM ONCE 1 mL 0RF NS Z30.42 - Encounter for surveillance of injectable contraceptive
[2024-01-29 14:49] VITALS: BMI 39.8
== END 2024-01-29 15:03 | disposition home or self-care (01) ==
LOC: HO.HWS 14:34
PROVIDERS: PCP Internal Medicine; Visit Provider Advanced Practice Midwife
DX: Z30.42 Encounter for surveillance of injectable contraceptive (principal)

== ENCOUNTER → 2024-01-29 14:34 | Outpatient (BNVA) | payer OTHER, SELFPAY | PROVIDERS: PCP Internal Medicine; Visit Provider Advanced Practice Midwife | DX: Z30.42 Encounter for surveillance of injectable contraceptive (principal) | CPT/HCPCS: 96372; 99211; J1050 ==

== ENCOUNTER 2024-04-23 10:05 | Outpatient (REF) | payer OTHER, SELFPAY | END 2024-04-23 10:06 | disposition home or self-care (01) | LOC: HO.LAB 10:05 | PROVIDERS: PCP Internal Medicine; Visit Provider Advanced Practice Midwife | DX: Z01.419 Encounter for gynecological examination (general) (routine) without abnormal findings (principal); Z30.42 Encounter for surveillance of injectable contraceptive; Z20.2 Contact with and (suspected) exposure to infections with a predominantly sexual mode of transmission | CPT/HCPCS: 96372; 99395; J1050 ==

== ENCOUNTER 2024-04-23 10:05 | Outpatient (AMB) | payer OTHER, SELFPAY ==
--- NOTE | 2024-04-23 10:07 | A.OFFVIS_ITS ---
Vital Signs 04/23/24 10:08 Height 5 ft Weight 200 lb BMI 39.1 BP 112/76 Intake Visit Reasons: Annual/DEPO Engineering And Operations Director: Engineering And Operations Director Present (Neha) Allergies promethazine [From PHENERGAN] Allergy (Intermediate, Verified 04/23/24 10:08) Agitated Medication List - Last Reconciled 04/23/24 by Celeste Pino CNM cyanocobalamin (vitamin B-12) 1,000 mcg PO DAILY medroxyprogesterone 150 mg IM [id number] 12 weeks HPI Comments Details: She is a premenopausal woman presenting for annual examination. Doing well with no concerns. She tries to eat healthy and stays active with exercise-walks. Currently is sexually active. She denies vaginal itching and irritation. STI screening offered; she accepts. She denies any contraindications to control such as: migraines with aura, history of DVT or pulmonary emboli, high blood pressure, liver disease, thrombolic disorders, Lupus, +ZOË, breast cancer, or smoking. Denies family history of breast, ovarian or colon cancer. Last pap smear 2022, negative. [facility] Medical History (Updated 04/23/24 @ 10:21 by Celeste Pino CNM) Thrombocytopenia Cervical polyp Surveillance for Depo-Provera contraception Family History Maternal Grandmother Diabetes Mother Diabetes Social History Household Members: Children Housing: House Alcohol intake: current Alcohol intake frequency: holidays/special occasions only Patient Tobacco Use Status: Never used Tobacco Substance Use Type: Marijuana service: No Current occupational status: employed Sexual orientation: Straight/Heterosexual Female Reproductive History Menstrual Age of Menarche: 8 control method: progesterone injection (01/29/24) Total pregnancies: 4 Full term: 3 Number of Living Children: 3 Date of last pap smear: 10/15/19 (neg pap and hpv) Review of Systems Const All systems reviewed & are unremarkable except as noted in HPI and below Reports as per HPI Eyes Reports no additional complaints ENT Reports no additional complaints Card Reports no additional complaints Resp Reports no additional complaints GI Reports as per HPI and Reports no additional complaints Reports as per HPI Musc Reports no additional complaints Skin/Breast Reports as per HPI Neuro Reports no additional complaints Psych Reports no additional complaints Endo Reports no additional complaints Yadiel/Lymph Reports no additional complaints Aller/Immun Reports no additional complaints Physical Exam Vital Signs: Last Vital Signs BP 112/76 04/23/24 10:08 BMI result Body Mass Index 39.1 Const General: cooperative, healthy appearing, no acute distress, well developed and alert Orientation/consciousness: patient oriented x3 HEENT Head: Yes normal to inspection Eyes General: appearance normal, both eyes and all related structures Neck Neck: Yes normal visual inspection Thyroid: Thyroid normal Chest Chest palpation & inspection: normal inspection of the chest and other (no puckering, dimpling, peau de orange, retraction, discharge, masses) Breast/axilla inspection: normal inspection of the breasts Breast/axilla palpation: normal palpation of the breasts Resp Effort & Inspection: normal respiratory effort GI Inspection: Yes normal to inspection Palpation (GI): Soft to palpation Rectal Exam - Female: deferred General: Yes bladder normal to palpation External Female Exam: normal external appearance and normal appearance of the urethra Speculum Exam - Vagina: normal appearance of the vagina, normal palpation and normal vaginal discharge Speculum Exam - Cervix: normal appearance of the cervix and normal palpation Bimanual exam- vagina & uterus: normal bimanual exam, normal palpation, uterine size normal, bladder normal to palpation, normal palpation and non-tender Bimanual Exam- Adnexa, other: no masses Skin General skin exam: no rashes or lesions noted Rashes: no rashes Neuro General: patient oriented x3 Cognition (Neuro): normal cognition Extrem General: Yes normal to inspection Psych Attitude: cooperative Thought process: Normal thought process present Office Procedures Depo Questionnaire If YES to any of the following questions, please consult a provider. Date of last injection: 01/29/24 Date of last gynecology exam: 04/23/24 Menstrual pattern since last injection has been: Not Applicable Irregular bleeding?: No Breast lumps or other breast changes?: No Changes in weight or appetite?: No Depression or changes in mood?: No Abnormal hair growth or loss?: No Skin problems (rash, acne, discoloration)?: No Pain at the injection site?: No Headaches?: No Nervousness?: No Abdominal pain or cramping?: No Dizziness or nausea?: No Fatigue or weakness?: No Decrease in sexual drive?: No Chest pain or shortness of breath?: No Swelling in arms or legs?: No Form completed by?: Jaycee Ritter LPN Office Meds Depo-Provera 150 mg/mL intramuscular syringe Performing Provider: Celeste Pino CNM Performing Location[place] [facility] Administered by: Maryana Ritter LPN on 04/23/24 10:48 Dose Route Admin Location Dispensed Lot Number Expiration Date [facility] Equipment Engineer 150 mg IM rt. deltoid 1 mL [id number] 03/23/26 82628-482-11 [facility] Assessment & Plan Assessment & Plan (1) Encounter for well woman exam with routine gynecological exam: Code(s): Z01.419 - Encounter for gynecological examination (general) (routine) without abnormal findings Category: Medical (2) Surveillance for Depo-Provera contraception: Code(s): Z30.42 - Encounter for surveillance of injectable contraceptive Category: Medical Plan Discussed: Current recommendations for pap smears per ASCCP guidelines. Breast awareness and periodic breast exams. Maintain a healthy lifestyle including a well balanced diet and routine exercise. control hormone use warnings: go to ER if and loss of vision, blindness, severe headache, chest pain or difficulty breathing, severe abdominal pain, or any pain or swelling in an extremity. Continue with Depo-Provera Q 12 weeks. Concerns for bone health. Patient verbalizes understanding and agrees to the plan of care. She was given opportunity to ask questions and all questions were answered to the best of my ability. RTO in one year for annual bindery leadperson examination. This note is constructed using voice recognition software. While every effort has been made to ensure accuracy, decorating instructor errors may have been included. Orders: Orders Bacterial Vaginosis Panel Today Z20.2 - Contact with and (suspected) exposure to infections with a predominantly sexual mode of transmission CT NG by PCR Today Z20.2 - Contact with and (suspected) exposure to infections with a predominantly sexual mode of transmission AMB Medroxyprogesterone Injection Patient Supplied Today Z30.42 - Encounter for surveillance of injectable contraceptive Medications: Refilled medroxyprogesterone 150 mg IM [id number] 12 weeks 1 mL 4RF Coding Level of Care Code Est Pt Prev Care 18-39y(42628) Diagnoses Encounter for well woman exam with routine gynecological exam Z01.419 Surveillance for Depo-Provera contraception Z30.42
[2024-04-23 10:08] VITALS: BP 112/76; BMI 39.1
== END 2024-04-23 10:46 | disposition home or self-care (01) ==
PROVIDERS: PCP Internal Medicine; Visit Provider Advanced Practice Midwife
DX: Z01.419 Encounter for gynecological examination (general) (routine) without abnormal findings (principal); Z30.42 Encounter for surveillance of injectable contraceptive
CPT/HCPCS: 99395

== ENCOUNTER 2024-04-23 10:31 | Outpatient (REF) | payer OTHER, SELFPAY ==
[2024-04-23 16:34] LABS: Bacterial Vaginosis PCR POSITIVE (Negative); Candida Group PCR NOT DETECTED (Not Detect); Candida glab krusei PCR NOT DETECTED (Not Detect); Trichomonas vaginalis PCR NOT DETECTED (Not Detect)
[2024-04-23 17:13] LABS: CT PCR NOT DETECTED (Not Detect.); NG PCR NOT DETECTED (Not Detect.)
== END 2024-04-23 10:32 | disposition home or self-care (01) ==
LOC: HO.LNP 10:31
PROVIDERS: Visit Provider Advanced Practice Midwife
DX: Z20.2 Contact with and (suspected) exposure to infections with a predominantly sexual mode of transmission (principal)
CPT/HCPCS: 0352U; 87491; 87591

== ENCOUNTER → 2024-07-14 15:01 | Outpatient (BNVA) | payer OTHER, SELFPAY | PROVIDERS: PCP Internal Medicine; Visit Provider Advanced Practice Midwife | DX: Z30.42 Encounter for surveillance of injectable contraceptive (principal) | CPT/HCPCS: 96372; 99211; J1050 ==

== ENCOUNTER → 2024-07-14 15:01 | Outpatient (AMB) | payer OTHER, SELFPAY ==
[2024-07-14 15:15] VITALS: BMI 39.1
--- NOTE | 2024-07-14 15:15 | AM.OFFVISNUR ---
Vital Signs 07/14/24 15:15 Height 5 ft Weight 200 lb 4 oz BMI 39.1 Intake Visit Reasons: depo Allergies promethazine [From PHENERGAN] Allergy (Intermediate, Verified 04/23/24 10:08) Agitated Nursing Note Armida is here today for her scheduled Depo-Provera inj. Pt denies any problems at this time. Follow up in 12 weeks. Office Procedures Depo Questionnaire If YES to any of the following questions, please consult a provider. Date of last injection: 04/22/24 Date of last gynecology exam: 04/22/24 Menstrual pattern since last injection has been: Not Applicable Irregular bleeding?: No Breast lumps or other breast changes?: No Changes in weight or appetite?: No Depression or changes in mood?: No Abnormal hair growth or loss?: No Skin problems (rash, acne, discoloration)?: No Pain at the injection site?: No Headaches?: No Nervousness?: No Abdominal pain or cramping?: No Dizziness or nausea?: No Fatigue or weakness?: No Decrease in sexual drive?: No Chest pain or shortness of breath?: No Swelling in arms or legs?: No Any other problems or concerns?: none voiced Form completed by?: Jaycee Ritter LPN Office Meds Depo-Provera 150 mg/mL intramuscular syringe Performing Provider: Celeste Pino CNM Performing Location: [facility] [place] [facility] Administered by: Maryana Ritter LPN on 07/14/24 15:15 Dose Route Admin Location Dispensed Lot Number Expiration Date [facility] [employer] Programmer 150 mg IM rt. deltoid 1 mL [id number] 08/16/26 69428-350-58 [facility] Assessment & Plan Assessment & Plan Orders: Orders AMB Medroxyprogesterone Injection Patient Supplied Today Z30.42 - Encounter for surveillance of injectable contraceptive Medications: New Depo-Provera (medroxyprogesterone) 150 mg IM ONCE 1 mL 0RF NS Z30.42 - Encounter for surveillance of injectable contraceptive
== END ==
LOC: HO.HWS 15:01
PROVIDERS: PCP Internal Medicine; Visit Provider Advanced Practice Midwife
DX: Z30.42 Encounter for surveillance of injectable contraceptive (principal)

== ENCOUNTER → 2024-10-06 14:59 | Outpatient (AMB) | payer OTHER, SELFPAY ==
[2024-10-06 15:20] VITALS: BMI 39.3
--- NOTE | 2024-10-06 15:20 | AM.OFFVISNUR ---
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 No c/o, no new medications and no new medical problems. Pt tolerated injection well. She will schedule her next injection in 12 weeks. Pt verbalizes understanding and agrees with plan. No further questions. Office Procedures Depo Questionnaire If YES to any of the following questions, please consult a provider. Date of last injection: 07/14/24 Date of last menstrual period: 10/03/24 Date of last gynecology exam: 04/22/24 Menstrual pattern since last injection has been: Light Irregular bleeding?: No Breast lumps or other breast changes?: No Changes in weight or appetite?: No Depression or changes in mood?: No Abnormal hair growth or loss?: No Skin problems (rash, acne, discoloration)?: No Pain at the injection site?: No Headaches?: No Nervousness?: No Abdominal pain or cramping?: No Dizziness or nausea?: No Fatigue or weakness?: No Decrease in sexual drive?: No Chest pain or shortness of breath?: No Swelling in arms or legs?: No Form completed by?: Maryam Wallace RN Office Meds Depo-Provera 150 mg/mL intramuscular syringe Performing Provider: Celeste Pino CNM Performing Location: [facility] Administered by: Maryam Wallace on 10/06/24 15:25 Dose Route Admin Location Dispensed Lot Number Expiration Date [facility] Hide Tanner 150 mg IM left deltoid 1 mL [id number] 09/16/26 95642-851-15 [facility] Assessment & Plan Assessment & Plan (1) Encounter for management and injection of depo-Provera: Code(s): Z30.42 - Encounter for surveillance of injectable contraceptive Category: Medical Plan: Pt will schedule next injection in 12 weeks. Orders: Orders AMB Medroxyprogesterone Injection Patient Supplied Today Z30.42 - Encounter for surveillance of injectable contraceptive Medications: New Depo-Provera (medroxyprogesterone) 150 mg IM ONCE 1 mL 0RF NS Z30.42 - Encounter for surveillance of injectable contraceptive
== END ==
LOC: HO.HWS 14:59
PROVIDERS: PCP Internal Medicine; Visit Provider Advanced Practice Midwife
DX: Z30.42 Encounter for surveillance of injectable contraceptive (principal)

== ENCOUNTER → 2024-10-06 14:59 | Outpatient (BNVA) | payer OTHER, SELFPAY | PROVIDERS: PCP Internal Medicine; Visit Provider Advanced Practice Midwife | DX: Z30.42 Encounter for surveillance of injectable contraceptive (principal) | CPT/HCPCS: 96372; 99211; J1050 ==

== ENCOUNTER 2024-12-29 11:47 | Outpatient (AMB) | payer OTHER, SELFPAY ==
--- NOTE | 2024-12-29 12:52 | AM.OFFVISNUR ---
Vital Signs 12/29/24 12:53 Height 5 ft Weight 204 lb 4 oz BMI 39.9 Intake Visit Reasons: DEPO Allergies promethazine [From PHENERGAN] Allergy (Intermediate, Verified 04/23/24 10:08) Agitated Nursing Note Armida is here today for her scheduled Depo-Provera inj. She denies any problems or concerns with the DEPO-Provera. Follow up in 12 wks for next inj. Next AG is scheduled for 04/28/25. Office Procedures Depo Questionnaire If YES to any of the following questions, please consult a provider. Date of last injection: 10/06/24 Date of last gynecology exam: 04/22/24 Menstrual pattern since last injection has been: Not Applicable Irregular bleeding?: No Breast lumps or other breast changes?: No Changes in weight or appetite?: Yes Depression or changes in mood?: No Abnormal hair growth or loss?: No Skin problems (rash, acne, discoloration)?: No Pain at the injection site?: No Headaches?: No Nervousness?: No Abdominal pain or cramping?: No Dizziness or nausea?: No Fatigue or weakness?: No Decrease in sexual drive?: No Chest pain or shortness of breath?: No Swelling in arms or legs?: No Form completed by?: Jaycee Ritter LPN Office Meds Depo-Provera 150 mg/mL intramuscular syringe Performing Provider: Celeste Pino CNM Performing Location: [facility] Administered by: Maryana Ritter LPN on 12/29/24 11:10 Dose Route Admin Location Dispensed Lot Number Expiration Date [facility] Armhole Sewer 150 mg IM left deltoid 1 mL [id number] 02/14/26 68583-152-84 [facility] Assessment & Plan Assessment & Plan Orders: Orders AMB Medroxyprogesterone Injection Patient Supplied Today Z30.42 - Encounter for surveillance of injectable contraceptive Medications: New Depo-Provera (medroxyprogesterone) 150 mg IM ONCE 1 mL 0RF NS Z30.42 - Encounter for surveillance of injectable contraceptive Coding Level of Care Code Established Pt Est Pt Level 1 (60386) Patient Type Established History Problem Focused Exam Problem Focused Medical Decision Making Straight Forward Time Spent (min) 20
[2024-12-29 12:53] VITALS: BMI 39.9
--- OUTSIDE RECORDS SUMMARY | 2024-12-29 13:49 | XMS_ITS | Encounter Summary ---
Author Organization [employer] Address [address] [place] [address] Care Team Providers Care Dish Stacker Name Role Phone Mikhail Forte MD Primary Care Pr ovider Reason for Visit * Therapy (Routine) - Closed Specialty Diagnoses / Procedures Referred By Contac t Referred To Contact Pulmonology Diagnoses Dyspnea on exertion Procedures Pulmonary function testing: Spirometry with Bronchodilator, Carbon Monoxide Diffusing Capacity Steven Mariano MD [address] [address] Phone: tel: fax: [facility] [address] [place] [address] Phone: tel: Referral ID Status Reason Start Date Expiration Date Visits Re quested Visits Authorized [id number] Closed 11/20/2024 11/20/2025 1 1 Encounter Details Date Type Department Care Team (Latest Contact Info) Description 12/24/2024 2:00 PM EDT Ancillary Procedure [place] - [place] [address] [address] Galina Lin Dyspnea on exertion Social History Tobacco Use Types Packs/Day Years Used Date Smoking Tobacco: Former Cigarettes Smokeless Tobacco: Never Alcohol Use Standard Drinks/Week Comments Yes 0 (1 standard drink = 0.6 oz pur e alcohol) Housing Instability Answer Date Recorde d Are you worried that in the next 2 months you may not have stable housing? No 10/27/2024 Food Access & Nutrition Answer Date Rec orded Do you have access to a vari ety of food including fruits and vegetables? No 10/27/2024 Health Literacy Answer Date Recorded How often do you need to hav e someone help you when you read instructions, pamphlets, or other written material from your doctor or pharmacy? Never 10/27/2024 Caregiver: How often do you need to have someone help you when you read instructions, pamphlets, or other written material from your doctor or pharmacy? Not on file 10/27/2024 Financial Risk Answer Date Recorded How hard is it for you to pa y for the very basics like food, housing, medical care, and air conditioning / heating? Not very hard 10/27/2024 Transportation Answer Date Recorded Has the lack of transportati on kept you from meetings, work, or from getting things needed for daily living? No Has the lack of transportati on kept you from medical appointments or from getting medications? No 10/27/2024 Social Isolation Answer Date Recorded How often do you feel lonely or isolated from th ose around you? Never 10/27/2024 Food Risk Answer Date Recorded Within the past 12 months we worried whether our food would run out before we got money to buy more. Never true 10/27/2024 Within the past 12 months th e food we bought just didn't last and we didn't have money to get more. Never true 10/27/2024 Dependent Care Answer Date Recorded Do you need help finding or paying for care for your loved ones. For example, child protection specialist or elderly care for an older adult? No 10/27/2024 Education Answer Date Recorded Do you think completing more education or training, like finishing a GED, going to college, or learning a trade, would be helpful for you? No 10/27/2024 Employment and Income Answer Date Recor ded During the last four weeks, have you been actively looking for work? No 10/27/2024 Living Situation Answer Date Recorded What is your living situation? 0 10/27/2024 Comments Unknown Sex and Gender Information Value Date Recorded Sex Assigned at Not on file Legal Sex Female 12:17 AM EST Gender Identity Not on file Sexual Orientation Not on file documented as of this encounter Progress Notes * Galina Lin - 12/24/2024 2:00 PM EDT PFT performed documented in this encounter Plan of Treatment Upcoming Encounters Date Type Department Care Team (Late st Contact Info) Description 01/22/2025 10:00 AM EDT Ancillary Procedure [facility] [address] [place] [address] 05/25/2025 9:30 AM EDT Office Visit Pulmonolgy - [place] [address] [facility] [address] [place] [address] Steven Mariano MD 175 [facility] [address] [place] [address] 07/06/2025 12:00 PM EDT Office Visit Adult Medicine [facility] [address] [place] [address] Mikhail Forte MD [address] [place] [id number] documented as of this encounter Procedures Procedure Name Priority Date/Time Associated Diagnosis Comments PULMONARY FUNCTION TESTING Routine 12/24/2024 2:18 PM EDT Dyspnea on exertion documented in this encounter Results * Pulmonary function testing: Spirometry with Bronchodilator, Carbon Monoxide Diffusing Capacity (12/24/2024 2:18 PM EDT) Impressions Steven Mariano MD - 12/24/2024 2:18 PM EDT DATE OF SERVICE: 12/24/24 SPIROMETRY: FEV1 is 66 % predicted and an FVC ??is 72 % predicted. The FEV1/FVC ratio is 93% of normal, significant response to bronchodilators noted. LUNG VOLUMES: Total lung capacity (TLC): 92% predicted. Residual volume (RV): 119% predicted RV/TLC ratio is 132% of normal DIFFUSION CAPACITY: DLCO 82% predicted. DlCO/VA 95% of predicted COMPARISONS: INTERPRETATION: This pulmonary function test shows moderate obstructive lung disease with improvement post albuterol. ??This is consistent with COPD/asthma ??Steven Mraiano MD ?? us Steven Mariano MD PFT ORDERABLES Final Result documented in this encounter Visit Diagnoses Diagnosis Dyspnea on exertion Other dyspnea and respiratory abnormality documented in this encounter Additional Health Concerns Assessment Noted Time PHQ-9 Depression Total Score: 0 10/27/19 25 10:54 AM EST documented as of this encounter Care Teams Dish Stacker Relationship Specialty Start Date End Date Mikhail Forte MD [address] [place] [address] PCP - General 03/23/23 documented as of this encounter
--- OUTSIDE RECORDS SUMMARY | 2024-12-29 13:49 | XMS_ITS | Clinical Summary ---
Author Organization [employer] Address [address] [place] [address] Care Team Providers Care Nursing Home Assistant Name Role Phone Unavailable Primary Care Provider Unavailabl e Social History Tobacco Use Types Packs/Day Years Used Date Smoking Tobacco: Never Assessed Comments Unknown Sex and Gender Information Value Date Recorded Sex Assigned at Female 01/05/2023 3:52 PM EDT Legal Sex Female 3:51 PM EDT Gender Identity Female 01/05/2023 3:52 PM EDT Sexual Orientation Don't know 01/05/2023 3: 52 PM EDT Plan of Treatment Health Maintenance Due Date Last Done Comments Depression Screening 1988 HIV Screening 1988 SDOH Screening 1988 Alcohol/Substance Use Screening 2000 Tobacco Screening 2000 Family Planning (PISQ) 2003 Hepatitis C Screening 2006 Hepatitis B Vaccines (1 of 3 - 19+ 3-dose series) 2007 Pap Smear 2009 Cervical Cancer Screening 2018 HPV/Cotest 2018 COVID-19 Vaccine (3 - 2023-2 5 season) 2024 02/08/2021, 01/18/2021 Influenza Vaccine (#1) 2024 11/12/2019 DTaP/Tdap/Td Vaccines (2 - T d or Tdap) 05/06/2029 05/06/2019 Zoster Vaccines (1 of 2) 2038 RSV Patients and Patients Aged 60 years or older (1 - 1-dose 75+ series) 2063 HIB Vaccines Aged Out No longer eligi ble based on patient's age to complete this topic HPV Vaccines Aged Out No longer eligi ble based on patient's age to complete this topic Hepatitis A Vaccines Aged Out No long er eligible based on patient's age to complete this topic IPV Vaccines Aged Out No longer eligi ble based on patient's age to complete this topic Meningococcal Vaccine Aged Out No radha diogo eligible based on patient's age to complete this topic Pneumococcal Vaccine: Pediatrics (0 to 5 Years) and At-Risk Patients (6 to 49) Years) Aged Out No longer eligible b ased on patient's age to complete this topic RSV under 20 months Aged Out No longe r eligible based on patient's age to complete this topic Rotavirus Vaccines Aged Out No longer eligible based on patient's age to complete this topic Insurance [facility] STANDARD
--- OUTSIDE RECORDS SUMMARY | 2024-12-29 13:50 | XMS_ITS | Clinical Summary ---
Author Organization [address] Address [address] [place] [address] Phone Care Team Providers Care Massage Therapy Instructor Name Role Phone Mikhail Forte MD Primary Care Pr ovider Allergies Active Allergy Reactions Criticality Noted Date Comments Promethazine Hcl 09/18/2007 ANXIOUS AND DIZZY Medications medroxyPROGESTERone 150 mg/mL injection Inject 1 mL into the muscle Every 3 Months. 9 Active albuterol HFA (PROAIR HFA ; PROVENTIL HFA ; VENTOLIN HFA) 90 mcg/actuation inhalerIndications:Dy spnea on exertion Inhale 1 puff by mouth every 6 (six) hours if needed for wheezing. 18 g 1 5 Active romiPLOStim (Nplate) 250 mcg recon solnIndications:Idiop athic thrombocytopenia purpura (CMS/HCC V24, CMS/HCC V28) Inject under the skin 1 (one) time per week. 5 Active cyanocobalamin (VITAMIN B-12) 1,000 mcg tablet TAKE 1 TABLET BY MOUTH EVERY DAY 90 tablet 1 5 Active Active Problems Problem Noted Date Diagnosed Date Mixed hyperlipidemia 10/27/2024 Assessment & Plan (10/27/2024 12:18 PM EST): Lifestyle counseling provided increasing her exercise and watching her diet Will update labs Orders: Lipid panel with reflex to direct LDL; Future Hemoglobin A1c; Future Dyspnea on exertion 10/27/2024 Assessment & Plan (10/27/2024 12:18 PM EST): Continue albuterol as needed. She is referred to pulmonology. Pending echocardiogram which was ordered in 2022 but not completed. This is reordered today Orders: albuterol HFA (PROAIR HFA ; PROVENTIL HFA ; VENTOLIN HFA) 90 mcg/actuation inhaler; Inhale 1 puff by mouth every 6 (six) hours if needed for wheezing. Transthoracic echocardiogram (TTE) complete with PRN contrast, bubble, strain, and 3D order panel; Future Ambulatory referral to Pulmonology; Future B12 deficiency 07/18/2023 Assessment & Plan (10/27/2024 12:18 PM EST): Continue B12 supplement(she takes this every other day.) Will update labs Orders: Vitamin B12; Future Idiopathic thrombocytopenia purpura ([facility] V24, [facility] V28) 07/18/2023 Assessment & Plan (10/27/2024 12:18 PM EST): Continue follow-up with [facility] hematology and treatment prior to [facility] hematology Orders: Comprehensive metabolic panel; Future CBC and differential; Future Severe obesity (BMI 35.0-39. 9) with comorbidity ([facility] V24, [facility] V28) 09/18/2007 Assessment & Plan (10/27/2024 12:18 PM EST): As above Encounters Date Type Department Care Team Description 12/24/2024 2:00 PM EDT Ancillary Procedure [place]ol - [place] [address] [address] Galina Lin Dyspnea on exertion 12/18/2024 9:50 AM EDT - 12/18/2024 11:59 PM EDT [facility] En[facility] [address] [place] [address] Dyspnea on exertion Discharge Disposition: Home or Self Care 11/20/2024 11:00 AM EST Consult Pulmonolgy - [address] [place] [address] Steven Mariano MD Dyspnea on exertion 10/27/2024 11:00 AM EST Office Visit Adult Medicine [address] [address] Mikhail Forte MD Mixed hyperlipidemia (Primary Dx); Severe obesity (BMI 35.0-39.9) with comorbidity (CMS/HCC V24, CMS/HCC V28); Dyspnea on exertion; Idiopathic thrombocytopenia purpura (CMS/HCC V24, CMS/HCC V28); B12 deficiency; History of iron deficiency anemia; Need for hepatitis C screening test from Last 3 Months Immunizations Name Administration Dates Next Due Influenza trivalent, 0.5mL, preservative free (Fluarix; FluLaval; Fluzone) ages 6mo and older (Afluria) 3 years and older 11/12/2019 Tdap Tetanus diptheria acell ular pertussis (Boostrix; Adacel) 7yo and older 05/06/2019 Surgical History Surgery Date Site/Laterality Comments OTHER SURGICAL HISTORY PROCEDURE: DENIES PREVIOUS SURGERY Medical History Medical History Date Comments Obese 09/18/2007 DX:Obese Anxiety state DX:Anxiety state Type AB blood, Rh positive DX:Ty pe AB blood, Rh positive; COMMENT: per d/c summary [facility] June 2023 Family History Medical History Relation Name Comments Other: not sure Father Colon cancer Maternal Grandfather 70s Heart attack Maternal Grandfather Hypertension Maternal Grandmother Arthritis Mother Diabetes Mother Mental illness Mother anxiety Colon cancer Uncle great uncle Breast cancer Neg Hx Ovarian cancer Neg Hx Relation Name Status Comments Brother Alive healthy Daughter 1 Alive Daughter 2 Alive Father Alive estranged Maternal Grandfather Maternal Grandmother Mother Alive Sister Alive Uncle Social History Tobacco Use Types Packs/Day Years Used Date Smoking Tobacco: Former Cigarettes Smokeless Tobacco: Never Tobacco Cessation:Counseling Given: Not Answered Alcohol Use Standard Drinks/Week Comments Yes 0 [...] for your loved ones. For example, child protective services specialist or elderly care for an older [...] on file Sexual Orientation Not on file Obstetrics History Last Filed Vital Signs Vital Sign Reading Time Taken Comments Blood Pressure 130/65 11/20/2024 11:01 AM EST Pulse 80 11/20/2024 11:01 AM EST Temperature 36.5 ??C (97.7 ??F) 10/27/2024 10:[address] Respiratory Rate 16 11/20/2024 11:01 AM EST Oxygen Saturation 98% 11/20/2024 11:01 AM EST Inhaled Oxygen Concentration - - Weight 92.3 kg (203 lb 6.4 oz) 11/20/2024 11:01 AM EST Height 152.4 cm (5') 11/20/2024 11:01 AM EST Body Mass Index 39.72 11/20/2024 11:01 AM EST Plan of Treatment Upcoming Encounters Date Type Department Care Team (Late st Contact Info) Description 01/22/2025 10:00 AM EDT Ancillary Procedure [facility] [address] [facility] [address] [place] [address] 05/25/2025 9:30 AM EDT Office Visit Pulmonolgy - [place] [address] [address] Steven Mariano MD 175 [facility] [address] [place] [address] 07/06/2025 12:00 PM EDT Office Visit Adult Medicine [address] [phone] Mikhail Forte MD [address] [place] [phone] Health Maintenance Due Date Last Done Comments Cervical Cancer Screening: HPV 04/22/2024 04/22/2019 Influenza Vaccine (Season Ended) 2025 11/12/2019, 08/31/2006 Depression Screening 10/27/2025 10/27/2024 Social Influencers of Health Screening 10/27/2025 10/27/2024 DTaP,Tdap,and Td Vaccines (2 - Td or Tdap) 05/06/2029 05/06/2019 Cholesterol Screening (Lipid Panel) 10/27/2029 10/27/2024, 03/06/2024, 03/06/2024 HIV Screening Completed 09/19/2017 COVID-19 Vaccine Discontinued 02/08/2021, 01/18/2021 Hepatitis C Screening Completed 10/27/2024 HIB Vaccines Aged Out No longer eligi ble based on patient's age to complete this topic HPV Vaccines Aged Out No longer eligi ble based on patient's age to complete this topic Hepatitis A Vaccines Aged Out No long er eligible based on patient's age to complete this topic Hepatitis B Vaccines Discontinued IPV Vaccines Aged Out No longer eligi ble based on patient's age to complete this topic MMR Vaccines Aged Out No longer eligi ble based on patient's age to complete this topic Meningococcal ACWY Vaccine Aged Out N o longer eligible based on patient's age to complete this topic Meningococcal B Vaccine Aged Out No l onger eligible based on patient's age to complete this topic Pneumococcal Vaccine: Pediatrics (0 to 5 Years) and At-Risk Patients (6 to 64 Years) Aged Out No longer eligible based on patient's age to complete this topic RSV Immunization Patients Under 20 months Aged Out No longer eligible based on patient's age to complete this topic Varicella Vaccines Aged Out No longer eligible based on patient's age to complete this topic Procedures Procedure Name Priority Date/Time Associated Diagnosis Comments PULMONARY FUNCTION TESTING Routine 12/24/2024 2:18 PM EDT Dyspnea on exertion XR CHEST 2 VIEWS Routine 12/18/2024 9:58 AM EDT Dyspnea on exertion CBC WITH AUTO DIFFERENTIAL Routine 10/27/2024 11:37 AM EST Idiopathic thrombocytopenia purpura (CMS/HCC V24, CMS/HCC V28) LIPID PANEL WITH REFLEX TO DIRECT LDL Routine 10/27/2024 11:37 AM EST Mixed hyperlipidemia VITAMIN B12 Routine 10/27/2024 11:37 AM EST B12 deficiency COMPREHENSIVE METABOLIC PANEL Routine 10/27/2024 11:37 AM EST Idiopathic thrombocytopenia purpura (CMS/HCC V24, CMS/HCC V28) CBC AND DIFFERENTIAL Routine 10/27/2024 11:37 AM EST Idiopathic thrombocytopenia purpura (CMS/HCC V24, CMS/[facility] V28) HEMOGLOBIN A1C Routine 10/27/2024 11:37 AM EST Mixed hyperlipidemia IRON AND TIBC Routine 10/27/2024 11:37 AM EST History of iron deficiency anemia FERRITIN Routine 10/27/2024 11:37 AM EST History of iron deficiency anemia HEPATITIS C ANTIBODY Routine 10/27/2024 11:37 AM EST Need for hepatitis C screening test HM HPV Routine 04/22/2019 HIV SCREENING Routine 09/19/2017 from Last 3 Months or Most Recently Relevant to Health Maintenance Results * Pulmonary function testing: Spirometry with [...] albuterol. ??This is consistent with COPD/asthma ??Steven Mariano MD ?? us Steven Mariano MD PFT ORDERABLES Final Result * XR Chest 2 Views (12/18/2024 9:58 AM EDT) Anatomical Region Laterality Modality Body Radiographic Crystal ging 12/18/2024 1:44 PM EDT Impressions 12/18/2024 1:44 PM EDT No acute cardiopulmonary process. -------- FINAL REPORT -------- Dictated By: Oly Arellano Dictated Date: 12/18/2024 13:44 ET Assigned Physician: Oly Arellano Reviewed and Electronically Signed By: Oly Arellano Signed Date: 12/18/2024 13:44 ET Workstation ID: [id number] Transcribed By: Self Edit Transcribed Date: 12/18/2024 13:44 ET Narrative 12/18/2024 1:44 PM EDT HISTORY: Dyspnea, on exertion TECHNIQUE: PA and lateral radiographs of the chest COMPARISON: None FINDINGS: There is a normal cardiomediastinal silhouette. The lungs are clear. The osseous structures are intact. ?? Procedure Note Oly Arellano MD - 12/18/2024 HISTORY: Dyspnea, on exertion TECHNIQUE: PA and lateral radiographs of the chest COMPARISON: None FINDINGS: There is a normal cardiomediastinal silhouette. The lungs are clear. Theosseous structures are intact. IMPRESSION: No acute cardiopulmonary process. -------- FINAL REPORT -------- Dictated By: Oly Arellano Dictated Date: 12/18/2024 13:44 ET Assigned Physician: Oly Arellano Reviewed and Electronically Signed By: Oly Arellano Signed Date: 12/18/2024 13:44 ET Workstation ID: [id number] Transcribed By: Self Edit Transcribed Date: 12/18/2024 13:44 ET Steven Mariano MD IMG XR PROCEDURES Final Result * Hepatitis C antibody (10/27/2024 11:37 AM EST) Hepatitis C Antibody Negative Negative LAB CHEMISTRY METHOD 10/27/2024 4:44 PM EST [facility] Blood Venous blood specimen / Unknown Venipuncture / Unknown 10/27/2024 11:37 AM EST 10/27/2024 11:37 AM EST Oyijose Forte MD LAB BLOOD ORDERA BLES Final Result [facility] [address] [place] [address], [place] [phone] * (ABNORMAL) Lipid panel with reflex to direct LDL (10/27/2024 11:37 AM EST) Pathologist [facility] Cholesterol 130 0 - 200 mg/dL LAB CHEMISTRY METHOD 10/27/2024 4:20 PM EST [facility] Triglycerides 182(H) 0 - 150 mg/dL LAB CHEMISTRY METHOD 10/27/2024 4:20 PM EST [facility] HDL 35(L) >=40 mg/dL LAB CHEMISTRY METHOD 10/27/2024 4:20 PM EST [facility] LDL Calculated 59 0 - 100 mg/dL LAB CHEMISTRY METHOD 10/27/2024 4:20 PM EST [facility] VLDL Cholesterol Thong 36.4 mg/dL LAB CHEMISTRY METHOD 10/27/2024 4:20 PM EST [facility] Non HDL Chol. (LDL+VLDL) 95 <145 mg/dL LAB CHEMISTRY METHOD 10/27/2024 4:20 PM EST [facility] Chol/HDL Ratio 3.7 0.0 - 4.4 LAB CHEMISTRY METHOD 10/27/2024 4:[address] [facility] Blood Venous blood specimen / Unknown Venipuncture / Unknown 10/27/2024 11:37 AM EST 10/27/2024 11:37 AM EST Mikhail Forte MD LAB BLOOD ORDERA BLES Final Result [facility] [address] [place] [address], [place] [phone] * (ABNORMAL) CBC auto differential (10/27/2024 11:37 AM EST) [facility] WBC 7.6 4.8 - 10.8 K/mcL LAB HEMETOLOGY METHOD 10/27/2024 2:[address] [facility] RBC 4.60 3.80 - 4.80 M/mcL LAB HEMETOLOGY METHOD 10/27/2024 2:[address] [facility] Hemoglobin 13.1 11.5 - 16.0 g/dL LAB HEMETOLOGY METHOD 10/27/2024 2:[address] [facility] Hematocrit 38.2 35.0 - 47.0 % LAB HEMETOLOGY METHOD 10/27/2024 2:[address] [facility] MCV 82.5 79.0 - 98.0 FL LAB HEMETOLOGY METHOD 10/27/2024 2:[address] [facility] MCH 28.3 27.0 - 32.0 pcg LAB HEMETOLOGY METHOD 10/27/2024 2:[address] [facility] MCHC 34.3 32.0 - 37.0 g/dL LAB HEMETOLOGY METHOD 10/27/2024 2:[address] [facility] RDW 13.3 11.0 - 15.0 % LAB HEMETOLOGY METHOD 10/27/2024 2:[address] [facility] Platelets 142 130 - 400 K/mcL LAB HEMETOLOGY METHOD 10/27/2024 2:[address] [facility] MPV 11.4(H) 7.0 - 11.0 FL LAB HEMETOLOGY METHOD 10/27/2024 2:[address] [facility] NRBC 0.0 <1.0 % LAB HEMETOLOGY METHOD 10/27/2024 2:[address] [facility] NRBC Absolute 0.00 <0.10 K/mcL LAB HEMETOLOGY METHOD 10/27/2024 2:[address] [facility] Neutrophils Relative 57.9 % LAB HEMETOLOGY METHOD 10/27/2024 2:[address] [facility] Lymphocytes Relative 33.8 % LAB HEMETOLOGY METHOD 10/27/2024 2:[address] [facility] Monocytes Relative 6.6 % LAB HEMETOLOGY METHOD 10/27/2024 2:[address] [facility] Eosinophils Relative 0.9 % LAB HEMETOLOGY METHOD 10/27/2024 2:[address] [facility] Basophils Relative 0.7 % LAB HEMETOLOGY METHOD 10/27/2024 2:[address] [facility] Immature Granulocytes Relative 0.1 % LAB HEMETOLOGY METHOD 10/27/2024 2:[address] [facility] Neutrophils Absolute 4.37 1.50 - 7.00 K/mcL LAB HEMETOLOGY METHOD 10/27/2024 2:[address] [facility] Lymphocytes Absolute 2.55 1.00 - 5.00 K/mcL LAB HEMETOLOGY METHOD 10/27/2024 2:[address] [facility] Monocytes Absolute 0.50 0.20 - 1.00 K/mcL LAB HEMETOLOGY METHOD 10/27/2024 2:[address] [facility] Eosinophils Absolute 0.07 0.00 - 0.50 K/mcL LAB HEMETOLOGY METHOD 10/27/2024 2:[address] [facility] Basophils Absolute 0.05 0.00 - 0.20 K/mcL LAB HEMETOLOGY METHOD 10/27/2024 2:[address] [facility] Immature Granulocytes Absolute 0.01 0.00 - 0.03 K/mcL LAB HEMETOLOGY METHOD 10/27/2024 2:[address] [facility] Blood Venous blood specimen / Unknown Venipuncture / Unknown 10/27/2024 11:37 AM EST 10/27/2024 11:37 AM EST Mikhail Forte MD LAB BLOOD ORDERA BLES Final Result Performing Organization Address City/[facility]/ZIP Co de Phone Number [facility] [address] [place] [address], [place] [phone] * Iron and TIBC (10/27/2024 11:37 AM EST) Iron 83 40 - 150 mcg/dL LAB CHEMISTRY METHOD 10/27/2024 4:20 PM EST [facility] TIBC 415 250 - 450 mcg/dL LAB CHEMISTRY METHOD 10/27/2024 4:20 PM EST [facility] Iron Saturation 20 15 - 50 % LAB CHEMISTRY METHOD 10/27/2024 4:20 PM EST [facility] Blood Venous blood specimen / Unknown Venipuncture / Unknown 10/27/2024 11:37 AM EST 10/27/2024 11:37 AM EST Mikhail Forte MD LAB BLOOD ORDERA BLES Final Result Performing Organization Address City/[facility] Co de Phone Number [facility] [address] [place] [address], [place] [phone] * Hemoglobin A1c (10/27/2024 11:37 AM EST) Hemoglobin A1C 5.4 <6.5 % LAB CHEMISTRY METHOD 10/27/2024 10:42 PM EST [facility] Mean Bld Glu Estim. 108 mg/dL LAB CHEMISTRY METHOD 10/27/2024 10:42 PM EST [facility] Blood Venous blood specimen / Unknown Venipuncture / Unknown 10/27/2024 11:37 AM EST 10/27/2024 11:37 AM EST Mikhail Forte MD LAB BLOOD ORDERA BLES Final Result Performing Organization Address City/[facility]/ZIP Co de Phone Number [facility] [address] [place] [address], * Ferritin (10/27/2024 11:37 AM EST) Pathologist [facility] Ferritin 78 8 - 252 ng/mL LAB CHEMISTRY METHOD 10/27/2024 4:20 PM EST [facility] Blood Venous blood specimen / Unknown Venipuncture / Unknown 10/27/2024 11:37 AM EST 10/27/2024 11:37 AM EST Mikhail Forte MD LAB BLOOD ORDERA BLES Final Result Performing Organization Address [facility]/ZIP Co de Phone Number [facility] [address] [place] [address], * Vitamin B12 (10/27/2024 11:37 AM EST) Pathologist [facility] Vitamin B-12 311 250 - 900 pcg/mL LAB CHEMISTRY METHOD 10/27/2024 4:20 PM EST [facility] Blood Venous blood specimen / Unknown Venipuncture / Unknown 10/27/2024 11:37 AM EST 10/27/2024 11:37 AM EST Mikhail Forte MD LAB BLOOD ORDERA BLES Final Result Performing Organization Address City/[facility]/ZIP Co de Phone Number [facility] [address] [place] [address], [place] [phone] * Comprehensive metabolic panel (10/27/2024 11:37 AM EST) Pathologist [facility] Sodium 139 133 - 145 mmol/L LAB CHEMISTRY METHOD 10/27/2024 4:20 PM EST [facility] Potassium 3.8 3.5 - 5.5 mmol/L LAB CHEMISTRY METHOD 10/27/2024 4:[address] [facility] Chloride 109 96 - 110 mmol/L LAB CHEMISTRY METHOD 10/27/2024 4:[address] [facility] CO2 25 21 - 32 mmol/L LAB CHEMISTRY METHOD 10/27/2024 4:[address] [facility] Anion Gap 5 3 - 11 LAB CHEMISTRY METHOD 10/27/2024 4:[address] [facility] Glucose 84 70 - 100 mg/dL LAB CHEMISTRY METHOD 10/27/2024 4:[address] [facility] BUN 11 5 - 25 mg/dL LAB CHEMISTRY METHOD 10/27/2024 4:[address] [facility] Creatinine 0.65 0.50 - 1.10 mg/dL LAB CHEMISTRY METHOD 10/27/2024 4:[address] [facility] eGFR 117 >=60 mL/min/1. 73m2 LAB CHEMISTRY METHOD 10/27/2024 4:[address] [facility] Comment:Calculation based on the??Chronic Kidney Disease Epidemiology Collaboration (CKD-EPI) equation refit??without adjustment for race. BUN/Creatinine Ratio 16.9 LAB CHEMISTRY METHOD 10/27/2024 4:[address] [facility] Calcium 8.8 8.5 - 10.5 mg/dL LAB CHEMISTRY METHOD 10/27/2024 4:[address] [facility] AST (SGOT) 12 10 - 42 unit/L LAB CHEMISTRY METHOD 10/27/2024 4:[address] [facility] ALT (SGPT) 28 10 - 60 unit/L LAB CHEMISTRY METHOD 10/27/2024 4:[address] [facility] Alkaline Phosphatase 113 42 - 121 unit/L LAB CHEMISTRY METHOD 10/27/2024 4:[address] [facility] Total Protein 7.4 6.0 - 8.0 g/dL LAB CHEMISTRY METHOD 10/27/2024 4:20 PM EST [facility] Albumin 3.9 3.2 - 5.0 g/dL LAB CHEMISTRY METHOD 10/27/2024 4:20 PM EST [facility] Total Bilirubin 0.6 0.0 - 1.4 mg/dL LAB CHEMISTRY METHOD 10/27/2024 4:20 PM EST [facility] Blood Venous blood specimen / Unknown Venipuncture / Unknown 10/27/2024 11:37 AM EST 10/27/2024 11:37 AM EST Mikhail Forte MD LAB BLOOD ORDERA BLES Final Result [facility] [address] [place] [address], * Cervical Cancer Screening: HPV (04/22/2019) [facility] Cervical Cancer Screening: HPV Negative, Abstracted Historical Provider HEALTH MAINTENANCE Final Result * HIV Screening (09/19/2017) [facility] HIV Screening Abstracted Historical Provider HEALTH MAINTENANCE Final Result from Last 3 Months or Most Recently Relevant to Health Maintenance Insurance [facility] Care Teams Massage Therapy Instructor Relationship Specialty Start Date End Date Mikhail Forte MD [address] [place] [address] [facility] - General 03/23/23
== END 2024-12-29 11:48 | disposition home or self-care (01) ==
LOC: HO.HWS 11:47
PROVIDERS: Visit Provider Advanced Practice Midwife
DX: Z30.42 Encounter for surveillance of injectable contraceptive (principal)

== ENCOUNTER → 2024-12-29 11:47 | Outpatient (BNVA) | payer OTHER, SELFPAY | PROVIDERS: Visit Provider Advanced Practice Midwife | DX: Z30.42 Encounter for surveillance of injectable contraceptive (principal) | CPT/HCPCS: 96372; 99211; J1050 ==

== ENCOUNTER → 2025-03-23 11:04 | Outpatient (BNVA) | payer OTHER, SELFPAY | PROVIDERS: Visit Provider Advanced Practice Midwife | DX: Z30.42 Encounter for surveillance of injectable contraceptive (principal) | CPT/HCPCS: 96372; 99211; J1050 ==

== ENCOUNTER → 2025-03-23 11:04 | Outpatient (AMB) | payer OTHER, SELFPAY ==
--- NOTE | 2025-03-23 11:12 | AM.OFFVISNUR ---
Vital Signs 03/23/25 11:12 Height 5 ft Intake Visit Reasons: DEPO Allergies promethazine (From [facility]) Allergy (Intermediate, Verified 04/23/24 10:08) Agitated Nursing Note Armida is here today for her scheduled Depo-provera inj. She denies any concerns. follow up in 12 wks for next inj and on 04/28/25 for her AG. Pt verbs understanding. Office Procedures Depo Questionnaire If YES to any of the following questions, please consult a provider. Date of last injection: 12/29/24 Date of last gynecology exam: 04/22/24 Menstrual pattern since last injection has been: Not Applicable Irregular bleeding?: No Breast lumps or other breast changes?: No Changes in weight or appetite?: No Depression or changes in mood?: No Abnormal hair growth or loss?: No Skin problems (rash, acne, discoloration)?: No Pain at the injection site?: No Headaches?: No Nervousness?: No Abdominal pain or cramping?: No Dizziness or nausea?: No Fatigue or weakness?: No Decrease in sexual drive?: No Chest pain or shortness of breath?: No Swelling in arms or legs?: No Form completed by?: Jaycee Ritter LPN Office Meds Depo-Provera 150 mg/mL intramuscular syringe Performing Provider: Celeste Pino CNM Performing Location: [facility] Administered by: Maryana Ritter LPN on 03/23/25 11:13 Dose Route Admin Location Dispensed Lot Number Expiration Date [facility] [employer] 150 mg IM rt. deltoid 1 mL [id number] 01/14/26 32661-211-87 [employer] Total Dispensed Waste 1 mL 0 % Assessment & Plan Assessment & Plan Orders: Orders AMB Medroxyprogesterone Injection Patient Supplied Today Z30.42 - Encounter for surveillance of injectable contraceptive Coding Level of Care Code Established Pt Est Pt Level 1 (35511) Patient Type Established History Problem Focused Exam Problem Focused Medical Decision Making Straight Forward Time Spent (min) 20
--- OUTSIDE RECORDS SUMMARY | 2025-03-23 12:01 | XMS_ITS | Clinical Summary ---
Author Organization [address] Address [address] [place] [address] Phone Care Team Providers Care Oracle Security Consultant Name Role Phone Mikhail Forte MD Primary [...] Orders: Vitamin B12; Future Idiopathic thrombocytopenia purpura ([facility] V24, [facility] V28) 07/18/2023 Assessment & Plan (10/27/2024 12:18 PM EST): Continue follow-up with [facility] hematology and treatment prior to [facility] hematology Orders: Comprehensive metabolic panel; Future CBC and differential; Future Severe obesity (BMI 35.0-39. 9) with comorbidity ([facility] V24, [facility] V28) 09/18/2007 Assessment & Plan (10/27/2024 12:18 PM EST): As above Encounters Date Type Department Care Team Description 01/22/2025 10:00 AM EDT Ancillary Procedure [facility] [address] [place] [id number] Dyspnea on exertion 12/24/2024 2:00 PM EDT Ancillary Procedure Pulmonolgy - [place] [address] [place] [id number] Galina Lin Dyspnea on exertion from Last 3 Months Immunizations Name Administration [...] blood, Rh positive; COMMENT: per d/c summary [facility] June 2023 Family History Medical History [...] for your loved ones. For example, child care associate teacher or elderly care for an older adult? [...] Sign Reading Time Taken Comments Blood Pressure 132/76 01/22/2025 10:50 AM EDT Pulse 80 11/20/2024 11:01 AM EST Temperature 36.5 C (97.7 F) 10/27/2024 10:55 AM EST Respiratory Rate 16 11/20/2024 11:01 AM EST Oxygen Saturation 98% 11/20/2024 11:01 AM EST Inhaled Oxygen Concentration - - Weight 93.4 kg (206 lb) 01/22/2025 10:50 AM EDT Height 152.4 cm (5') 01/22/2025 10:50 AM EDT Body Mass Index 40.23 01/22/2025 10:50 AM EDT Plan of Treatment Upcoming Encounters Date Type Department Care Team (Late st Contact Info) Description 05/25/2025 9:30 AM EDT Office Visit Pulmonolgy - [place] [address] [facility] [address] [place] [phone] Steven Mariano MD [address] [place] [address] 09/01/2025 10:00 AM EST Office Visit Adult [address] [phone] Janine Fleming PA [address] [place] [address] Health Maintenance Due Date Last Done Comments Cervical Cancer Screening: HPV 04/22/2024 04/22/2019 Influenza Vaccine (#1) 2025 , 08/31/2006 Depression Screening 10/27/2025 10/27/2024 Social Influencers [...] Procedure Name Priority Date/Time Associated Diagnosis Comments TRANSTHORACIC ECHOCARDIOGRAM (TTE) COMPLETE W/ CONTRAST Routine 01/22/2025 10:50 AM EDT Dyspnea on exertion PULMONARY FUNCTION TESTING Routine 12/24/2024 2:18 PM EDT Dyspnea on exertion HEPATITIS C ANTIBODY Routine 10/27/2024 11:37 AM EST Need for hepatitis C screening test LIPID PANEL WITH REFLEX TO DIRECT LDL Routine 10/27/2024 11:37 AM EST Mixed hyperlipidemia HM HPV Routine 04/22/2019 HM HIV SCREENING Routine 09/19/2017 from Last 3 Months or Most Recently Relevant to Health Maintenance Results * (ABNORMAL) TRANSTHORACIC ECHOCARDIOGRAM (TTE) COMPLETE W/ CONTRAST (01/22/2025 10:50 AM EDT) Left Atrium Minor Blythe 5.1 cm CV PACS Left Atrium Major Blythe 5.4 cm CV PACS LA Area Sys (A2C) 14 cm2 CV PACS LA Area Sys (A4C) 16 cm2 CV PACS LA Volume (BP) 35 mL CV PACS RA Area 11.6 cm2 CV PACS RA 2D Volume 25 mL CV PACS AV Mean Gradient 4 mmHg CV PACS Ao VTI 26.0 cm CV PACS AV Peak Nick 1.4 m/s CV PACS AV Peak Gradient 8 mmHg CV PACS AV Area Continuity Equation 2.5 cm2 CV PACS AV Area Peak Velocity 2.1 cm2 CV PACS Aortic Sinus Valsalva 2.8 cm CV PACS Ascending Aorta 2.7 cm CV PACS IVC Proximal 1.1 cm CV PACS IVSD 0.8 0.6 - 0.9 cm CV PACS LVIDD 4.6 3.8 - 5.2 cm CV PACS LVIDS 3.4 2.2 - 3.5 cm CV PACS LVOT Diameter 2.0 cm CV PACS LVOT Mean Nick 0.7 m/s CV PACS LVOT Mean Grad 2 mmHg CV PACS LVOT Peak VTI 21.1 cm CV PACS LVOT Peak Nick 1.0 m/s CV PACS LVOT Peak Gradient 4 mmHg CV PACS LVPWD 0.9 0.6 - 0.9 cm CV PACS MV E' Tissue Velocity Lateral 12 cm/s CV PACS MV E' Tissue Velocity Septal 8 cm/s CV PACS LVOT Area 3.1 cm2 CV PACS LVOT Stroke Volume 66 mL CV PACS MV Deceleration Harris 5.8 m/s2 CV PACS E Wave Deceleration Time 173 119 - 242 ms CV PACS MV PHT 51 ms CV PACS MV Peak A Nick 0.64 m/s CV PACS MV Peak E Nick 1.00 m/s CV PACS MV Area PHT 4.3 cm2 CV PACS PV Acceleration Time 87 ms CV PACS RV Diastolic Basal Dimension 3.4 2.5 - 4.1 cm CV PACS RV S' 12 cm/s CV PACS TAPSE 18 mm CV PACS TR Peak Velocity 2.29 m/s CV PACS TR Peak Gradient 21 mmHg CV PACS E/E' Ratio Septal 13 CV PACS E/E' Ratio Averaged 10 CV PACS Relative Wall Thickness ratio 0.39 CV PACS LVOT:AV VTI Index 0.81 CV PACS FS 26 % CV PACS LV Mass 2D 128 g CV PACS LVOT flow 220 mL/s CV PACS AV Velocity Ratio 0.71 CV PACS E/A Ratio 1.6 CV PACS E/E' Ratio Lateral 8 CV PACS BSA 1.99 m2 CV PACS LA Volume Index (BP) 19 mL/m2 CV PACS LVIDD Index 2.43 cm/m2 CV PACS LVIDS Index 1.80 cm/m2 CV PACS LV Mass Index 2D 68 44 - 88 g/m2 CV PACS LVOT Stroke Index 35 mL/m2 CV PACS RA 2D Volume Index 13(A) 15 - 27 mL/m2 CV PACS JOAQUIN Index (VTI) 1.35 cm2/m2 CV PACS JOAQUIN Index (Pk Nick) 1.11 cm2/m2 CV PACS Ascending Aorta Index 1.43 cm/m2 CV PACS Right Ventricular Peak Systolic Pressure 24 mmHg CV PACS Est. RA Pressure 3 mmHg CV PACS Anatomical Region Laterality Modality Ultrasound Narrative 01/29/2025 11:58 AM EDT Left ventricle cavity size is normal. Wall thickness is normal. Systolic function is normal with an ejection fraction of 55-60%. There are no regional LV wall motion abnormalities. There is no diastolic dysfunction. Right ventricle cavity is normal. Right ventricular systolic function is normal. The atria are normal in size. No hemodynamically significant valve disease. See remainder of the report for additional findings. Left Ventricle Left ventricle cavity size is normal. Wall thickness is normal. Systolic function is normal with an ejection fraction of 55-60%. There are no regional LV wall motion abnormalities. There is no diastolic dysfunction. Right Ventricle Right ventricle cavity appears normal. Systolic function is normal. Left Atrium Left atrium cavity size is normal. Right Atrium Right atrium cavity is normal. IVC/SVC RA pressures is estimated to be 3 mmHg (IVC diameter <21 mm and decreases >50% during inspiration). Mitral Valve The leaflets are mildly thickened. There is trace regurgitation. There is no evidence of mitral valve stenosis. Tricuspid Valve Tricuspid valve structure is normal. There is trace regurgitation. The right ventricular systolic pressure is normal. Aortic Valve The aortic valve is trileaflet. There is no regurgitation or stenosis. Pulmonic Valve Pulmonic valve opens normally. No significant pulmonic valve regurgitation. Ascending Aorta The aorta appears normal in size. Transverse aorta not well visualized. Pericardium Fat pad present. There is no pericardial effusion. Study Details Overall the study quality was suboptimal. Definity contrast was given to enhance imaging. Mikhail Forte MD CV ECHO PROCEDUR ES Final Result * Pulmonary function testing: Spirometry with Bronchodilator, Carbon Monoxide Diffusing Capacity (12/24/2024 2:18 PM EDT) Impressions Steven Mariano MD - 12/24/2024 2:18 PM EDT DATE OF SERVICE: 12/24/24 SPIROMETRY: FEV1 is 66 % predicted and an FVC is 72 % predicted. The FEV1/FVC ratio is 93% of normal, significant response to bronchodilators noted. LUNG VOLUMES: Total lung capacity (TLC): 92% predicted. Residual volume (RV): 119% predicted RV/TLC ratio is 132% of normal DIFFUSION CAPACITY: DLCO 82% predicted. DlCO/VA 95% of predicted COMPARISONS: INTERPRETATION: This pulmonary function test shows moderate obstructive lung disease with improvement post albuterol. This is consistent with COPD/asthma Steven Mariano MD Steven Mariano MD PFT ORDERABLES Final Result * Hepatitis C antibody (10/27/2024 11:37 AM EST) [facility] Hepatitis C Antibody Negative Negative LAB CHEMISTRY METHOD 10/27/2024 4:44 PM [facility] Blood Venous blood specimen / Unknown Venipuncture / Unknown 10/27/2024 11:37 AM EST 10/27/2024 11:37 AM EST Mikhail Foret MD LAB BLOOD ORDERA BLES Final Result [facility] [address] [place] [address], [place] [phone] * (ABNORMAL) Lipid panel with reflex to direct LDL (10/27/2024 11:37 AM EST) [facility] Cholesterol 130 0 - 200 mg/dL LAB CHEMISTRY METHOD 10/27/2024 4:20 PM [facility] Triglycerides 182(H) 0 - 150 mg/dL LAB CHEMISTRY METHOD 10/27/2024 4:20 PM [facility] HDL 35(L) >=40 mg/dL LAB CHEMISTRY METHOD 10/27/2024 4:20 PM [facility] LDL Calculated 59 0 - 100 mg/dL LAB CHEMISTRY METHOD 10/27/2024 4:20 PM [facility] VLDL Cholesterol Thong 36.4 mg/dL LAB CHEMISTRY METHOD 10/27/2024 4:20 PM [facility] Non HDL Chol. (LDL+VLDL) 95 <145 mg/dL LAB CHEMISTRY METHOD 10/27/2024 4:20 PM [facility] Chol/HDL Ratio 3.7 0.0 - 4.4 LAB CHEMISTRY METHOD 10/27/2024 4:20 PM EST [facility] Blood Venous blood specimen / Unknown Venipuncture / Unknown 10/27/2024 11:37 AM EST 10/27/2024 11:37 AM EST Mikhail Forte MD LAB BLOOD ORDERA BLES Final Result [facility] [address] [place] [address], [place] [phone] * Cervical Cancer Screening: HPV (04/22/2019) Pathologist [facility] Cervical Cancer Screening: HPV Negative, Abstracted Historical Provider HEALTH MAINTENANCE Final Result * HIV Screening (09/19/2017) Pathologist [facility] HIV Screening Abstracted Historical Provider HEALTH MAINTENANCE Final Result from Last 3 Months or Most Recently Relevant to Health Maintenance Insurance [facility] [employer] Care Teams Oracle Security Consultant Relationship Specialty Start Date End Date Mikhail Forte MD [address] [place] [id number] PCP - General 03/23/23
--- OUTSIDE RECORDS SUMMARY | 2025-03-23 12:01 | XMS_ITS | Clinical Summary ---
Author Organization [employer] Address [address] [facility] [address] [place] [address] Care Team Providers Care Senior Investigator Name Role Phone Unavailable Primary Care Provider [...] 1988 HIV Screening 1988 SDOH Screening 1988 Disability Screening 1988 Alcohol/Substance Use Screening 2000 Tobacco Screening 2000 Family Planning (PISQ) 2003 Hepatitis C Screening 2006 Hepatitis B Vaccines (1 of 3 - 19+ 3-dose series) 2007 Pap Smear 2009 Cervical Cancer Screening 2018 HPV/Cotest 2018 COVID-19 Vaccine (3 - 2023-2 5 season) 2024 02/08/2021, 01/18/2021 Influenza Vaccine (#1) 2025 11/12/2019 DTaP/Tdap/Td Vaccines (2 - T d [...] Years) and At-Risk Patients (6 to 49) Years Aged Out No longer eligible b ased on patient's age to complete this topic RSV under 20 months Aged Out No longe r eligible based on patient's age to complete this topic Rotavirus Vaccines Aged Out No longer eligible based on patient's age to complete this topic [place] [address] [address] STANDARD
== END ==
LOC: HO.HWS 11:04
PROVIDERS: Visit Provider Advanced Practice Midwife
DX: Z30.42 Encounter for surveillance of injectable contraceptive (principal)

== ENCOUNTER 2025-06-17 14:27 | Outpatient (AMB) | payer OTHER, SELFPAY ==
[2025-06-17 14:38] VITALS: BMI 40.1
--- NOTE | 2025-06-17 14:38 | AM.OFFVISNUR ---
Vital Signs 06/17/25 14:38 Height 5 ft Weight 205 lb 2 oz BMI 40.1 Intake Visit Reasons: Depo-Provera INJ Allergies promethazine (From [facility]) Allergy (Intermediate, Verified 04/23/24 10:08) Agitated Nursing Note Armida is here for her scheduled Depo-Provera inj. She denies any problems or concerns with the Depo-Provera. Pt has appt on 09/04/25 for her AG, and was reminded to make sure she does come in for it. Pt verbs understanding. Office Procedures Depo Questionnaire If YES to any of the following questions, please consult a provider. Date of last injection: 03/23/25 Date of last gynecology exam: 04/23/24 Menstrual pattern since last injection has been: Not Applicable Irregular bleeding?: No Breast lumps or other breast changes?: No Changes in weight or appetite?: Yes (slight gain) Depression or changes in mood?: No Abnormal hair growth or loss?: No Skin problems (rash, acne, discoloration)?: No Pain at the injection site?: No Headaches?: No Nervousness?: No Abdominal pain or cramping?: No Dizziness or nausea?: No Fatigue or weakness?: No Decrease in sexual drive?: No Chest pain or shortness of breath?: No Swelling in arms or legs?: No Form completed by?: Jaycee Ritter LPN Office Meds Depo-Provera 150 mg/mL intramuscular syringe Performing Provider: Celeste Pino CNM Performing Location: [facility] Administered by: Maryana Ritter LPN on 06/17/25 14:40 Dose Route Admin Location Dispensed Lot Number Expiration Date [facility] [employer] 150 mg IM rt. deltoid 1 mL [id number] 09/16/27 54865-182-61 [facility] Total Dispensed Waste 1 mL 0 % Assessment & Plan Assessment & Plan Orders: Orders AMB Medroxyprogesterone Injection Patient Supplied Today Z30.42 - Encounter for surveillance of injectable contraceptive Medications: New medroxyprogesterone (Depo-Provera) 150 mg IM Q12W 1 mL 0RF 3 months Discontinued medroxyprogesterone Discontinued Reason: Entered in error 150 mg IM [id number] 12 weeks 1 mL 0RF Coding Level of Care Code Established Pt Est Pt Level 1 (96773) Patient Type Established History Problem Focused Exam Problem Focused Medical Decision Making Straight Forward Time Spent (min) 20
--- OUTSIDE RECORDS SUMMARY | 2025-06-17 15:36 | XMS_ITS | Clinical Summary ---
Author Organization [employer] Address [address] [place] [address] Care Team Providers Care Machine Driller Name Role Phone Unavailable Primary Care Provider [...] Tobacco Screening 2000 Family Planning (PISQ) 2003 HPV Vaccines (1 - 3-dose series) 2003 Hepatitis C Screening 2006 Hepatitis B Vaccines (1 of 3 - 19+ 3-dose series) 2007 Pap Smear 2009 Cervical Cancer Screening 2018 HPV/Cotest 2018 COVID-19 Vaccine (3 - 2024-2 6 season) 2025 02/08/2021, 01/18/2021 Influenza Vaccine (#1) 2025 11/12/2019 [...] patient's age to complete this topic [place] [address] [place] [address] STANDARD
--- OUTSIDE RECORDS SUMMARY | 2025-06-17 15:36 | XMS_ITS ---
Author Name [facility] Organization Unknown Care Team Organization Name Specialty Phone Email Start Date End Da te [facility] 07/25/2022 4
--- OUTSIDE RECORDS SUMMARY | 2025-06-17 15:36 | XMS_ITS | Clinical Summary ---
Author Organization [address] Address [address] [place] [phone] Phone Care Team Providers Care Reconciliation Manager Name Role Phone Mikhail Forte MD Primary Care Pr ovider Allergies Active Allergy Reactions Criticality Noted Date Comments Promethazine Hcl 09/18/2007 ANXIOUS AND DIZZY Medications medroxyPROGESTERone 150 mg/mL injection Inject 1 mL into the muscle Every 3 Months. 05/29/20 19 Active albuterol HFA (PROAIR HFA ; PROVENTIL HFA ; VENTOLIN HFA) 90 mcg/actuation inhalerIndications:D yspnea on exertion Inhale 1 puff by mouth every 6 (six) hours if needed for wheezing. 18 g 1 10/27/19 25 Active romiPLOStim (Nplate) 250 mcg recon solnIndications:Idio pathic thrombocytopenia purpura (CMS/HCC V24, CMS/HCC V28) Inject under the skin 1 (one) time per week. 10/27/19 25 Active cyanocobalamin (VITAMIN B-12) 1,000 mcg tablet TAKE 1 TABLET BY MOUTH EVERY DAY 90 tablet 1 05/11/20 25 Active acetaminophen (TYLENOL 8 HOUR) 650 mg 8 hr tabletIndications:Pa in in left ankle and joints of left foot,Plantar fasciitis of left foot Take 1 tablet (650 mg total) by mouth every 8 (eight) hours if needed for mild pain or moderate pain for up to 10 days. Do not crush, chew, or split. 30 tablet 05/29/20 25 025 Active Problems Problem Noted Date Diagnosed Date Hypokalemia 05/29/2025 Class 2 obesity 05/29/2025 Mixed hyperlipidemia 10/27/2024 Assessment & Plan (10/27/2024 [...] Orders: Vitamin B12; Future Idiopathic thrombocytopenia purpura (CMS/HCC V24, CMS/[facility] V28) 07/18/2023 Assessment & Plan (10/27/2024 12:18 PM EST): Continue follow-up with [facility] hematology and treatment prior to [facility] hematology Orders: Comprehensive metabolic panel; Future CBC and differential; Future Severe obesity (BMI 35.0-39. 9) with comorbidity (CMS/HCC V24, CMS/HCC V28) 09/18/2007 Assessment & Plan (10/27/2024 12:18 PM EST): As above Encounters Date Type Department Care Team Description 05/29/2025 10:46 AM EDT - 05/29/2025 11:59 PM EDT Hospital Encounter [address] [phone] Pain in left ankle and joints of left foot; Plantar fasciitis of left foot Discharge Disposition: Home or Self Care 05/29/2025 10:46 AM EDT - 05/29/2025 11:59 PM EDT Hospital Encounter [address] [phone] Pain in left ankle and joints of left foot; Plantar fasciitis of left foot Discharge Disposition: Home or Self Care 05/29/2025 10:30 AM EDT Office Visit Adult [address] [phone] Mikhail Forte MD Pain in left ankle and joints of left foot (Primary Dx); Plantar fasciitis of left foot 05/27/2025 Nurse Triage Adult [address] [phone] Mikhail Forte MD 04/29/2025 10:45 AM EDT Office Visit [facility] - [address] [phone] Kris Greenwood PA Contusion of left hip, initial encounter (Primary Dx) 04/29/2025 Nurse Triage Adult [address] [phone] Mikhail Forte MD from Last 3 Months Immunizations Immunization Administration Dates Next Due Influenza trivalent, 0.5mL, preservative free (Fluarix; FluLaval; Fluzone) ages 6mo and older (Afluria) 3 years and older 11/12/2019 Influenza trivalent, with pr eservative (Fluzone; Afluria) 6mo and older 08/31/2006 Tdap Tetanus diptheria acell ular pertussis (Boostrix; Adacel) 7yo and older 05/06/2019 Surgical History Surgery Date Site/Laterality Comments OTHER SURGICAL HISTORY PROCEDURE: DENIES PREVIOUS SURGERY Medical History Medical History Date Comments Obese 09/18/2007 DX:Obese Anxiety state DX:Anxiety state Type AB blood, Rh positive DX:Ty pe AB blood, Rh positive; COMMENT: per d/c summary [facility] June 2023 Family History Medical History [...] care for your loved ones. For example, director of early childhood education or elderly care for an older adult? [...] Date Recorded What is your living situation? Unrecognized valu e 10/27/2024 Comments No Sex and Gender Information Value Date Recorded Sex Assigned at Not on file Legal Sex Female 12:17 AM EST Gender Identity Not on file Sexual Orientation Not on file Obstetrics History Last Filed Vital Signs Vital Sign Reading Time Taken Comments Blood Pressure 120/85 05/29/2025 9:47 AM EDT Pulse 76 05/29/2025 9:47 AM EDT Temperature 36.2 C (97.1 F) 05/29/2025 9:47 AM EDT Respiratory Rate 15 05/29/2025 9:47 AM EDT Oxygen Saturation 99% 05/29/2025 9:47 AM EDT Inhaled Oxygen Concentration - - Weight 95.6 kg (210 lb 12.8 oz) 05/29/2025 9:47 AM EDT Height 152.4 cm (5') 05/29/2025 9:47 AM EDT Body Mass Index 41.17 05/29/2025 9:47 AM EDT Plan of Treatment Upcoming Encounters Date Type Department Care Team (Late st Contact Info) Description 09/01/2025 10:00 AM EST Office Visit Adult Medicine [address] [phone] Janine Fleming PA [address] [place] [address] Health Maintenance Due Date Last Done Comments HPV Vaccines (1 - 3-dose SCD M series) 2015 Cervical Cancer Screening: Pap Smear 04/22/2022 04/22/2019, 04/22/2019, 04/22/2019 Influenza Vaccine (#1) 2025 , 08/31/2006 Social Influencers of Health Screening 10/27/2025 10/27/2024 DTaP,Tdap,and Td Vaccines (2 - Td or Tdap) 05/06/2029 05/06/2019 Cholesterol Screening (Lipid Panel) 10/27/2029 10/27/2024, 03/06/2024, 03/06/2024 RSV Immunization Adult Patients (1 - 1-dose 75+ series) 2063 HIV Screening Completed 09/19/2017 COVID-19 Vaccine Discontinued 02/08/2021, 01/18/2021 Depression Screening Completed 10/27/2024 Hepatitis C Screening Completed 10/27/2024 HIB Vaccines [...] 5 Years) and At-Risk Patients (6 to 49 Years) Aged Out No longer eligible based on patient's age to complete this topic RSV Immunization Patients Under 20 months Aged Out No longer eligible based on patient's age to complete this topic Varicella Vaccines Aged Out No longer eligible based on patient's age to complete this topic Procedures Procedure Name Priority Date/Time Associated Diagnosis Comments XR FOOT 3+ VIEWS LEFT Routine 05/29/2025 10:55 AM EDT Pain in left ankle and joints of left foot Plantar fasciitis of left foot XR ANKLE 3+ VIEWS LEFT Routine 05/29/2025 10:55 AM EDT Pain in left ankle and joints of left foot Plantar fasciitis of left foot HEPATITIS C ANTIBODY Routine 10/27/2024 11:37 AM EST Need for hepatitis C screening test LIPID PANEL WITH REFLEX TO DIRECT LDL Routine 10/27/2024 11:37 AM EST Mixed hyperlipidemia PAP SMEAR Routine 04/22/2019 HM HIV SCREENING Routine 09/19/2017 from Last 3 Months or Most Recently Relevant to Health Maintenance Results * XR Foot 3+ Views Left (05/29/2025 10:55 AM EDT) Anatomical Region Laterality Modality Lower Extremities, Foot [facility] 05/30/2025 7:16 PM EDT Narrative 05/30/2025 7:18 PM EDT Left foot, 3 views. History left foot pain. There is arm area of increased bone density in the cuboid bone which could represent bone island or other etiology. There are mild degenerative changes in the first metatarsophalangeal joint. There are calcaneal spurs more prominent inferiorly. No acute fractures or dislocations. CONCLUSIONS: Bone island versus other etiology high density lesion in the cuboid bone. Degenerative changes in the first metatarsophalangeal joint. Calcaneal spurs. -------- FINAL REPORT -------- Dictated By: Ama Jimenes Dictated Date: 05/30/2025 19:16 ET Assigned Physician: Ama Jimenes Reviewed and Electronically Signed By: Ama Jimenes Signed Date: 05/30/2025 19:18 ET Workstation ID: [id number] Transcribed By: Self Edit Transcribed Date: 05/30/2025 19:16 ET Procedure Note Ama Jimenes MD - 05/30/2025 Left foot, 3 views. History left foot pain. There is arm area of increased bone density in the cuboid bone which couldrepresent bone island or other etiology. There are mild degenerativechanges in the first metatarsophalangeal joint. There are calcaneal spursmore prominent inferiorly. No acute fractures or dislocations. CONCLUSIONS: Bone island versus other etiology high density lesion in thecuboid bone. Degenerative changes in the first metatarsophalangeal joint.Calcaneal spurs. -------- FINAL REPORT -------- Dictated By: Ama Jimenes Dictated Date: 05/30/2025 19:16 ET Assigned Physician: Ama Jimenes Reviewed and Electronically Signed By: Ama Jimenes Signed Date: 05/30/2025 19:18 ET Workstation ID: [id number] Transcribed By: Self Edit Transcribed Date: 05/30/2025 19:16 ET Mikhail Forte MD IMG XR PROCEDURE S Final Result * XR Ankle 3+ Views Left (05/29/2025 10:55 AM EDT) Anatomical Region Laterality Modality Lower Extremities, Ankle Left Radiogr [facility] Imaging 05/30/2025 7:15 PM EDT Narrative 05/30/2025 7:16 PM EDT Left ankle, 3 views. History pain. There is suggestion of from subchondral cyst versus osteochondral defect in the medial aspect of the talar dome. There is mild soft tissue swelling medially. There is no acute fractures, dislocations or destructive lesions. There are calcaneal spurs more prominent inferiorly. CONCLUSIONS: Findings suggestive of osteochondral defect versus subchondral cysts in the medial aspect of the left perihilar dome. Calcaneal spurs. -------- FINAL REPORT -------- Dictated By: Ama Jimenes Dictated Date: 05/30/2025 19:15 ET Assigned Physician: Ama Jimenes Reviewed and Electronically Signed By: Ama Jimenes Signed Date: 05/30/2025 19:16 ET Workstation ID: [id number] Transcribed By: Self Edit Transcribed Date: 05/30/2025 19:15 ET Procedure Note Ama Jimenes MD - 05/30/2025 Left ankle, 3 views. History pain. There is suggestion of from subchondral cyst versus osteochondral defectin the medial aspect of the talar dome. There is mild soft tissue swellingmedially. There is no acute fractures, dislocations or destructivelesions. There are calcaneal spurs more prominent inferiorly. CONCLUSIONS: Findings suggestive of osteochondral defect versussubchondral cysts in the medial aspect of the left perihilar dome.Calcaneal spurs. -------- FINAL REPORT -------- Dictated By: Ama Jimenes Dictated Date: 05/30/2025 19:15 ET Assigned Physician: Ama Jimenes Reviewed and Electronically Signed By: Ama Jimenes Signed Date: 05/30/2025 19:16 ET Workstation ID: [id number] Transcribed By: Self Edit Transcribed Date: 05/30/2025 19:15 ET Mikhail Forte MD IMG XR PROCEDURE S Final Result * Hepatitis C antibody (10/27/2024 11:37 AM EST) [facility] Hepatitis C Antibody Negative Negative LAB CHEMISTRY METHOD 10/27/2024 4:44 PM [facility] Blood Venous blood specimen / Unknown Venipuncture / Unknown 10/27/2024 11:37 AM EST 10/27/2024 11:37 AM EST Mikhail Forte MD LAB BLOOD ORDERA BLES Final Result [facility] [address] [place] [address], [place] [phone] * (ABNORMAL) Lipid panel with reflex to direct LDL (10/27/2024 11:37 AM EST) [facility] Cholesterol 130 0 - 200 mg/dL LAB CHEMISTRY METHOD 10/27/2024 4:20 PM [facility] Triglycerides 182(H) 0 - 150 mg/dL LAB CHEMISTRY METHOD 10/27/2024 4:20 PM [facility] HDL 35(L) >=40 mg/dL LAB CHEMISTRY METHOD 10/27/2024 4:20 PM EST [facility] LDL Calculated 59 0 - 100 mg/dL LAB CHEMISTRY METHOD 10/27/2024 4:20 PM EST [facility] VLDL Cholesterol Thong 36.4 mg/dL LAB CHEMISTRY METHOD 10/27/2024 4:20 PM EST [facility] Non HDL Chol. (LDL+VLDL) 95 <145 mg/dL LAB CHEMISTRY METHOD 10/27/2024 4:20 PM EST [facility] Chol/HDL Ratio 3.7 0.0 - 4.4 LAB CHEMISTRY METHOD 10/27/2024 4:20 PM EST [facility] Blood Venous blood specimen / Unknown Venipuncture / Unknown 10/27/2024 11:37 AM EST 10/27/2024 11:37 AM EST Mikhail Forte MD LAB BLOOD ORDERA BLES Final Result [facility] [address] [place] [address], * Pap smear (04/22/2019) 04/22/2019 Narrative HISTORICAL TESTING LAB RESULTING AGENCY - 05/01/2019 6:21 PM EDT [id number] THINPREP PAP, IMAGED: NEGATIVE FOR SQUAMOUS INTRAEPITHELIAL LESION AND MALIGNANCY . REACTIVE CELLULAR CHANGES. CLUE CELLS ARE PRESENT. VON NOWAK , SARAHI(ASCP) (CASE SCREENED 04 25 2019) SHEEBA STANFORD M.D. , PATHOLOGIST (CASE ELECTRONICALLY SIGNED 04 30 2019) RESULT OF APTIMA HIGH RISK HPV ASSAY: HIGH RISK HPV: NEGATIVE (SEROTYPES 16,18,31,33,35,39,45,51,52,56,58,59,66,68) COMPLETED ON 2019-04-24 ADEQUACY: SATISFACTORY ENDOCERVICAL/TRANSFORMATION ZONE COMPONENT PRESENT. SOURCE: THINPREP PAP HPV ANY DX: REFLEX 16 AND 18, CERVICAL, IMAGED CLINICAL INFORMATION: HPV ANY DIAGNOSIS. Z12.4, PAP HX NEG. Berta Zamudio MD LAB CYTOLOGY ORDERABLES Final Result HISTORICAL TESTING LAB RESULTING AGENCY * HIV Screening (09/19/2017) Pathologist [facility] HIV Screening Abstracted Historical Provider HEALTH MAINTENANCE Final Result from Last 3 Months or Most Recently Relevant to Health Maintenance Insurance [facility] Care Teams Reconciliation Manager Relationship Specialty Start Date End Date Mikhail Forte MD [address] [place] [phone] PCP - General 03/23/23
== END 2025-06-17 14:50 | disposition home or self-care (01) ==
LOC: HO.HWS 14:27
PROVIDERS: Supervising Provider Advanced Practice Midwife; Visit Provider Advanced Practice Midwife
DX: Z30.42 Encounter for surveillance of injectable contraceptive (principal)

== ENCOUNTER → 2025-06-17 14:27 | Outpatient (BNVA) | payer OTHER, SELFPAY | PROVIDERS: Visit Provider Advanced Practice Midwife | DX: Z30.42 Encounter for surveillance of injectable contraceptive (principal) | CPT/HCPCS: 96372; 99211; J1050 ==

== ENCOUNTER 2025-09-04 09:09 | Outpatient (AMB) | payer OTHER, SELFPAY ==
--- OUTSIDE RECORDS SUMMARY | 2025-09-01 10:00 | XMS_ITS | Encounter Summary ---
Author Organization [employer] Address [address] [place] [address] Care Team Providers Care Interventional Radiology Rn Name Role Phone Mikhail Forte MD Primary Care Pr ovider Reason for Visit * Reason Comments Annual Exam Encounter Details Date Type Department Care Team (Late st Contact Info) Description 09/01/2025 10:00 AM EST Office Visit Adult Medicine [address] [phone] Janine Fleming PA [address] [facility] [place] [address] Annual physical exam (Primary Dx); Idiopathic thrombocytopenia purpura (CMS/HCC V24, CMS/HCC V28); Dyspnea on exertion; Morbid obesity with BMI of 40.0-44.9, adult (CMS/HCC V24, CMS/HCC V28); Mixed hyperlipidemia; B12 deficiency Social History Tobacco Use Types Packs/Day Years Used Date Smoking Tobacco: Former Cigarettes Smokeless Tobacco: Never Tobacco Cessation:Counseling Given: Not Answered Alcohol Use Standard Drinks/Week Comments Yes 0 (1 standard drink = 0.6 oz pur e alcohol) Housing Instability Answer Date Recorde d Are you worried that in the next 2 months you may not have stable housing? No 09/01/2025 Food Access & Nutrition Answer Date Rec orded Do you have access to a vari ety of food including fruits and vegetables? Yes 09/01/2025 Access to Healthcare Answer Date Record ed Within the last 3 months, alee hand many times did you visit the emergency department for your medical care? 0 09/01/2025 Health Literacy Answer Date Recorded How often do you need to hav e someone help you when you read instructions, pamphlets, or other written material from your doctor or pharmacy? Never 09/01/2025 Caregiver: How often do you need to have someone help you when you read instructions, pamphlets, or other written material from your doctor or pharmacy? Not on file 09/01/2025 Financial Risk Answer Date Recorded How hard is it for you to pa y for the very basics like food, housing, medical care, and air conditioning / heating? Not very hard 09/01/2025 Transportation Answer Date Recorded Has the lack of transportati on kept you from meetings, work, or from getting things needed for daily living? No Has the lack of transportati on kept you from medical appointments or from getting medications? No 09/01/2025 Social Isolation Answer Date Recorded How often do you feel lonely or isolated from th ose around you? Never 09/01/2025 Food Risk Answer Date Recorded Within the past 12 months we worried whether our food would run out before we got money to buy more. Sometimes true 025 Within the past 12 months th e food we bought just didn't last and we didn't have money to get more. Never true 09/01/2025 Dependent Care Answer Date Recorded Do you need help finding or paying for care for your loved ones. For example, childcare center administrator or elderly care for an older adult? No 09/01/2025 Education Answer Date Recorded Do you think completing more education or training, like finishing a GED, going to college, or learning a trade, would be helpful for you? No 09/01/2025 Employment and Income Answer Date Recor ded During the last four weeks, have you been actively looking for work? No 09/01/2025 Living Situation Answer Date Recorded What is your living situation? Unrecognized valu e 09/01/2025 Comments No Sex and Gender Information Value Date Recorded Sex Assigned at Not on file Legal Sex Female 12:17 AM EST Gender Identity Not on file Sexual Orientation Not on file documented as of this encounter Last Filed Vital Signs Vital Sign Reading Time Taken Comments Blood Pressure 111/76 09/01/2025 10:02 AM EST Pulse 94 09/01/2025 10:02 AM EST Temperature 36.1 C (97 F) 09/01/2025 10:02 AM EST Respiratory Rate 20 09/01/2025 10:02 AM EST Oxygen Saturation - - Inhaled Oxygen Concentration - - Weight 97.1 kg (214 lb) 09/01/2025 10:02 AM EST Height 152.4 cm (5') 09/01/2025 10:02 AM EST Body Mass Index 41.79 09/01/2025 10:02 AM EST documented in this encounter Ordered Prescriptions Prescription Sig Dispense Quantity Refills Last Filled Start Date End Date cyanocobalamin (VITAMIN B-12) 1,000 mcg tablet Take 1 tablet (1,000 mcg total) by mouth 1 (one) time each day. 90 tablet 1 09/01/2025 albuterol HFA (PROAIR HFA ; PROVENTIL HFA ; VENTOLIN HFA) 90 mcg/actuation inhalerIndications: Dyspnea on exertion Inhale 1 puff by mouth every 6 (six) hours if needed for wheezing. 18 g 2 09/01/2025 documented in this encounter Progress Notes * Isabelle Kramer MA - 09/01/2025 10:00 AM EST Pt refused flu shot Depression Screening Over the last 2 weeks, how often have you been bothered by little interest or pleasure in doing things?: Not at all Over the last 2 weeks, how often have you been bothered by feeling down, depressed, or hopeless?: Not at all Depression Risk: 0 Additional Depression Screening PHQ -9 Depression Risk Score: 0 Screening Result: Negative Risk Category: Negative Social Influencers of Health Who provided answers?: Self Within the past 12 months we worried whether our food would run out before we got money to buy more.: Sometimes true Within the past 12 months the food we bought just didn't last and we didn't have money to get more.: Never true How hard is it for you to pay for the very basics like food, housing, medical care, and air conditioning / heating?: Not very hard Are you worried that in the next 2 months you may not have stable housing?: No Do you have access to a variety of food including fruits and vegetables?: Yes Within the last 3 months, how many times did you visit the emergency department for your medical care?: 0 Has the lack of transportation kept you from meetings, work, or from getting things needed for daily living?: No Has the lack of transportation kept you from medical appointments or from getting medications?: No How often do you feel lonely or isolated from those around you?: Never How often do you need to have someone help you when you read instructions, pamphlets, or other written material from your doctor or pharmacy?: Never * DEE DEE Cole - 09/01/2025 10:00 AM EST CHIEF COMPLAINT: Annual Exam IDENTIFIER:Armida Peña is a here today for evaluation of general medical health HPI: Armida Peña is here today for routine physical exam Eye and dental exams up to date Sees [employer] through [facility], has appointment tomorrow she states Declines flu shot ITP - sees [facility], on weekly Nplate. She states she experiences dyspnea on exertion related to her ITP, uses albuterol PRN with relief Patient states her sister recently started Wegovy and has been doing well. Patient states she has had trouble losing weight after the of her son (who is now 5) despite diet and exercise. She states she will lose weight but ends up gaining it back, cannot keep it off. She does try to cook meals at home, states is not having three meals/day typically, not typically hungry for breakfast in themornings Hyperlipidemia Lab Results Component Value Date CHOL 130 10/27/2024 TRIG 182 (H) 10/27/2024 HDL 35 (L) 10/27/2024 LDLCALC 59 10/27/2024 VLDL 36.4 10/27/2024 NONHDLC 95 10/27/2024 CHOLHDL 3.7 10/27/2024 B12 deficiency - on 1000mcg daily supplement Lab Results Component Value Date [id number] 311 10/27/2024 ROS: GENERAL: No malaise, significant weight loss or fever HEENT: No changes in hearing or vision NECK: No lumps, goiter, pain or significant neck swelling RESPIRATORY: No cough, wheezing or shortness of breath CARDIOVASCULAR: No chest pain, leg swelling or palpitations BREAST: no lumps, discharge, pain or change in skin GI: No abdominal discomfort, blood in stools or black stools : No dysuria, frequency or incontinence [employer]: No abnormal vaginal bleeding or abnormal vaginal discharge. MUSCULOSKELETAL: No joint pain or swelling, back pain, or muscle pain. SKIN: No lesions, rash or itching PSYCH: No sleep disturbance, mood disorder or recent psychosocial stressors HEMATOLOGY/LYMPHOLOGY No prolonged bleeding, easy bruisability ENDOCRINE: No cold or heat intolerance, polyuria or goiter NEURO: No persistent headache, syncope, seizures, weakness or numbness PAST MEDICAL HISTORY: Patient Active Problem List Diagnosis Date Noted Hypokalemia 05/29/2025 Mixed hyperlipidemia 10/27/2024 Dyspnea on exertion 10/27/2024 B12 deficiency 07/18/2023 Idiopathic thrombocytopenia purpura ([facility] V24, [facility] V28) 07/18/2023 IMMUNIZATIONS/INJECTIONS: Most Recent Immunizations Administered Date(s) Administered Influenza trivalent, 0.5mL, preservative free (Fluarix; FluLaval; Fluzone) ages 6mo and older (Afluria) 3 years and older 11/12/2019 Influenza trivalent, with preservative (Fluzone; Afluria) 6mo and older 08/31/2006 Graph Story SARS-CoV-2 COVID-19, mRNA, LNP-S, preservative free 02/08/2021 Tdap Tetanus diptheria acellular pertussis (Boostrix; Adacel) 7yo and older 05/06/2019 HEALTH MAINTENANCE: Health Maintenance Topic Date Due HPV Vaccines (1 - 3-dose SCDM series) Never done Cervical Cancer Screening: Pap Smear 04/22/2022 Influenza Vaccine (1) 11/30/2025 (Originally 05/18/2025) Social Influencers of Health Screening 09/01/2026 DTaP,Tdap,and Td Vaccines (2 - Td or Tdap) 05/06/2029 Cholesterol Screening (Lipid Panel) 10/27/2029 RSV Immunization Adult Patients (1 - 1-dose 75+ series) 2063 HIV Screening Completed Hepatitis C Screening Completed Depression Screening Completed HIB Vaccines Aged Out IPV Vaccines Aged Out Hepatitis A Vaccines Aged Out MMR Vaccines Aged Out Varicella Vaccines Aged Out Meningococcal ACWY Vaccine Aged Out Meningococcal B Vaccine Aged Out Pneumococcal Vaccine: Pediatrics (0 to 5 Years) and At-Risk Patients (6 to 49 Years) Aged Out RSV Immunization Patients Under 20 months Aged Out Hepatitis B Vaccines Discontinued COVID-19 Vaccine Discontinued SOCIAL HISTORY: Social History Tobacco Use Smoking status: Former Current packs/day: 0.50 Types: Cigarettes Smokeless tobacco: Never Substance Use Topics Alcohol use: Yes FAMILY HISTORY: Family History[1] ACTIVE MEDICATIONS: Medications Taking[2] ALLERGIES: Current Allergies[3] PHYSICAL EXAM: Visit Vitals BP 111/76 Pulse 94 Temp 36.1 ??C (97 ??F) (Temporal) Resp 20 Ht 1.524 m (60 ) Wt 97.1 kg (214 lb) BMI 41.79 kg/m?? OB Status Injection Smoking Status Former BSA 1.92 m?? APPEARANCE: Alert and in no acute distress EYES: PERRLA, conjunctiva and sclera normal. EARS: External ears normal. Canals clear. TMs normal. THROAT: no erythema or exudates NECK: Neck supple, no adenopathy, thyroid symmetric and of normal size HEART: RRR with normal S1 and S2 LUNG: clear to auscultation BREAST (FEMALE): Deferred to polysomnograph tech ABDOMEN: Bowel sounds normoactive, no bruits, soft, non-tender, without organomegaly or palpable masses [employer] (FEMALE): Deferred to polysomnograph tech BACK: No pain to palpation with good flexion and extension EXTREMITIES: Extremities warm and well perfused without clubbing, cyanosis, or edema NEURO: Awake, alert and oriented x 3 SKIN: Skin color, texture, turgor normal LABS/IMAGING: Reviewed IMPRESSION: 1. Annual physical exam 2. Idiopathic thrombocytopenia purpura (CMS/HCC V24, CMS/HCC V28) 3. Dyspnea on exertion 4. Morbid obesity with BMI of 40.0-44.9, adult (CMS/HCC V24, CMS/HCC V28) 5. Mixed hyperlipidemia 6. B12 deficiency PLAN: 1. Health maintenance: The patient presented for an evaluation of general health. As part of this visit, we reviewed the following issues, which are considered an essential part of preventative health in this age group: - Breast cancer screening for high risk individuals - mammogram not warranted - Cervical cancer testing every 1-3 years - patient is up-to-date - Blood pressure annual screening performed - Cholesterol screening every five years - ordered - Osteoporosis prevention including calcium/vitamin D intake, weight bearing exercise & smokingcessation - Nutritional and exercise counseling - patient advised to pursue at least 30 minutes of exercise most days of the week, limit portion sizes, eat breakfast, and avoid eating after dinner - Screening for depression - using the PHQ-2 - Screening for Type 2 diabetes mellitus in those with hypertension and/or hyperlipidemia - Prevention of and/or testing for infectious diseases, which may include Chlamydia, Gonorrhea, Syphilis, HIV, Hepatitis C and Tuberculosis - testing declined - Recommendations about immunizations - patient is due for Influenza immunization but defers this - Recommendation of an eye exam for glaucoma once in this age range - patient is up-to-date - Screening for substance abuse (including tobacco, alcohol, and recreational drugs) - see Substance & Sexuality section of medical record - Genetic cancer risk screening - NO INDICATION: Hereditary Cancer Syndrome Risk Assessment completed and evaluated. No indication found for genetic testing at this time. - In addition to reviewing these issues, I have reviewed the following sections of the chart: Past Medical History, Social History, and Social History - Did you have a dental visit in the last 12 months? Yes ITP - follow-up with Hematology as directed Obesity, BMI 41.79, hyperlipidemia - will repeat fasting lab work. Patient interested in GLP-1 medication. Will obtain fasting labs and plan to send once results back. Denies personal or family history of thyroid cancer or pancreatitis. Discussed potential side effects from medication. Discussed pot ential for medication to be costly/insurance not to cover. Discussed if this is the case, would defer other weight management medications to specialist and will place referral if needed. Discussed ifthey are able to cotton picker operator and start medication will plan follow-up accordingly B12 deficiency - will repeat level, continue daily supplement Patient verbalized understanding and is in agreement with plan ADDITIONAL ORDERS: Orders Placed This Encounter Procedures CBC and differential Comprehensive metabolic panel Hemoglobin A1c Lipid panel with reflex to direct LDL Thyroid stimulating hormone with reflex to free t4 and free t3 Vitamin B12 None Today's documentation was made using voice recognition software.This note may contain grammatical errors secondary to this software. DEE DEE Cole on 09/01/2025 at 12:53 PM EST [1] Family History Problem Relation Name Age of Onset Other (Other: not sure) Father Mental illness Mother anxiety Arthritis Mother Diabetes Mother Colon cancer Maternal Grandfather 70s Heart attack Maternal Grandfather Hypertension Maternal Grandmother Colon cancer Uncle great uncle Breast cancer Neg Hx Ovarian cancer Neg Hx [2] Outpatient Medications Marked as Taking for the 09/01/25 encounter (Office Visit) with DEE DEE Cole Medication Sig Dispense Refill albuterol HFA (PROAIR HFA ; PROVENTIL HFA ; VENTOLIN HFA) 90 mcg/actuation inhaler Inhale 1 puff bymouth every 6 (six) hours if needed for wheezing. 18 g 2 cyanocobalamin (VITAMIN B-12) 1,000 mcg tablet Take 1 tablet (1,000 mcg total) by mouth 1 (one) time each day. 90 tablet 1 medroxyPROGESTERone 150 mg/mL injection Inject 1 mL into the muscle Every 3 Months. romiPLOStim (Nplate) 250 mcg recon soln Inject under the skin 1 (one) time per week. [DISCONTINUED] albuterol HFA (PROAIR HFA ; PROVENTIL HFA ; VENTOLIN HFA) 90 mcg/actuation inhaler Inhale 1 puff by mouth every 6 (six) hours if needed for wheezing. 18 g 1 [DISCONTINUED] cyanocobalamin (VITAMIN B-12) 1,000 mcg tablet TAKE 1 TABLET BY MOUTH EVERY DAY 90 tablet 1 [3] Allergies Allergen Reactions Promethazine Hcl ANXIOUS AND DIZZY documented in this encounter Plan of Treatment Upcoming Encounters Date Type Department Care Team (Late st Contact Info) Description 10/05/2025 2:15 PM EST Office Visit Orthopedic Surgery [facility] [address] [phone] Kenneth Belcher DPMatt [address] [phone] 09/02/2026 10:00 AM EST Office Visit Adult Medicine [address] [phone] Janine Fleming PA [address] [place] [id number] Scheduled Orders Name Type Priority Associated Diagnoses Orde r Schedule CBC and differential Lab Routine Annual physical exam 1 Occurrences starting 09/01/2025 until 03/02/2026 Comprehensive metabolic panel Lab Routine Annual physical exam 1 Occurrences starting 09/01/2025 until 03/02/2026 Hemoglobin A1c Lab Routine Annual physical exam 1 Occurrences starting 09/01/2025 until 03/02/2026 Lipid panel with reflex to direct LDL Lab Routine Annual physical exam 1 Occurrences starting 09/01/2025 until 03/02/2026 Thyroid stimulating hormone with reflex to free t4 and free t3 Lab Routine Annual physical exam 1 Occurrences starting 09/01/2025 until 03/02/2026 Vitamin B12 Lab Routine Annual physical exam 1 Occurrences starting 09/01/2025 until 03/02/2026 documented as of this encounter Visit Diagnoses Diagnosis Annual physical exam- Primary Routine general medical examination at a health care facility Idiopathic thrombocytopenia purpura ([facility] V24, [facility] V28) Immune thrombocytopenic purpura Dyspnea on exertion Other dyspnea and respiratory abnormality Morbid obesity with BMI of 40.0-44.9, adult ([facility] V24, [facility] V28) Mixed hyperlipidemia B12 deficiency documented in this encounter Discontinued Medications Medication Sig Discontinue Reason Start Date End Da te albuterol HFA (PROAIR HFA ; PROVENTIL HFA ; VENTOLIN HFA) 90 mcg/actuation inhalerIndications:Dyspn ea on exertion Inhale 1 puff by mouth every 6 (six) hours if needed for wheezing. Reorder 10/27/2024 09/01/2025 cyanocobalamin (VITAMIN B-12) 1,000 mcg tablet TAKE 1 TABLET BY MOUTH EVERY DAY Reorder 05/11/2025 09/01/2025 documented as of this encounter Additional Health Concerns Assessment Noted Time PHQ-9 Depression Total Score: 0 09/01/20 25 10:07 AM EST documented as of this encounter Care Teams Interventional Radiology Rn Relationship Specialty Start Date End Date Mikhail Forte MD [address] [place] [phone] PCP - General 03/23/23 documented as of this encounter
--- OUTSIDE RECORDS SUMMARY | 2025-09-02 09:30 | XMS_ITS | Encounter Summary ---
Author Organization [employer] Address [address] [place] [address] Care Team Providers Care Cutting Torch Operator Name Role Phone Mikhail Forte MD Primary Care Pr ovider Reason for Visit * Reason Comments Consult Left ankle pain * Consultation (Routine) - Authorized Specialty Diagnoses / Procedures Referred By Contact Referred To Contact Podiatry / Orthopaedic Surgery Diagnoses Pain in left ankle and joints of left foot Plantar fasciitis of left foot Mikhail Forte MD [address] [place] [phone] Phone: tel: fax: Kenneth Belcher DPM [address] [phone] Phone: tel: fax: Referral ID Status Reason Start Date Expiration Date Visits Requested Visits Authorized [id number] Authorized Specialty Services Required 05/29/2025 05/29/2026 1 1 Encounter Details Date Type Department Care Team (Late st Contact Info) Description 09/02/2025 9:30 AM EST Office Visit Orthopedic Surgery - [place] [address] [phone] Kenneth Belcher DPM [address] [phone] Plantar fascial fibromatosis (Primary Dx); Equinus contracture of ankle Social History Tobacco Use Types Packs/Day Years [...] Record ed Within the last 3 months, ho w many times did you visit the emergency [...] for your loved ones. For example, childcare aide or elderly care for an older adult? [...] on file documented as of this encounter Patient Instructions * Attachments The following attachments cannot be sent through Care Everywhere. * Plantar Fasciitis: Exercises (Slovak) documented in this encounter Ordered Prescriptions Prescription Sig Dispense Quantity Refills Last Filled Start Date End Date meloxicam (MOBIC) 15 mg tablet Take 1 tablet (15 mg total) by mouth 1 (one) time each day. 30 tablet 1 09/02/2025 11/01/2025 documented in this encounter Progress Notes * Kenneth Belcher, DPM - 09/02/2025 9:30 AM EST Last PCP visit:Referring MD: Mikhail Forte MD IDENTIFIER: Mariana is a 35 y.o. year old female who presents for consultation. CC: Foot pain HPI: Mariana is a 35 y.o. year old female presents complaining of chronic heel pain of her left heel thatis worse activity present activity where she goes from sit to stands been going for over a year hadx-rays taken concerning for calcaneal spur she states that sharp shooting pain she was from sit to stand when she wakes up at night denies history of trauma ROS: GENERAL: Pt denies nausea, fever, vomiting, chills, or shortness of breath. Pt in NAD. CARDIOLOGY: pt denies chest pain, palpitations LUNGS: pt denies shortness of breath MUSCULOSKELETAL: See HPI, otherwise no joint pain or swelling, back pain, or muscle pain. SKIN: see HPI, otherwise no lesions, rash or itching NEURO: No persistent headache, weakness or numbness The remainder of the review of systems is noncontributory PAST MEDICAL HISTORY: Problem List[1] SOCIAL HISTORY: Social History Tobacco Use Smoking status: Former Current packs/day: 0.50 Types: Cigarettes Smokeless tobacco: Never Substance Use Topics Alcohol use: Yes ACTIVE MEDICATIONS: Medications Taking[2] ALLERGIES: Allergies[3] PHYSICAL EXAM: Visit Vitals OB Status Injection Smoking Status Former PODIATRIC EXAMINATION: GENERAL: Patient appears well nourished, with NAD. VASCULAR: Dorsalis pedis pulses are 2/4 bilaterally and Posterior tibial pulses are 2/4 bilaterally. Capillary filling time within normal limits the digits. No pallor on elevation or rubor on dependency. No varicosities. Denies rest pain or claudication pain. NEUROLOGICAL: Sharp/dull sensation intact, protective sensation intact 10/10 with Ipswitch touch test bilaterally, vibratory sensation intact to the tibial tuberosity. ORTHOPEDIC: Good muscle strength 5/5 of all flexors and extensors. Pain with palpation of the medial tuber of the left calcaneus, negative palpable fibromas Equinus with 5 degrees dorsiflexion with knee bent 0 degrees with knee extended positive silver skoild test No pain on palpation of the posterior tibial tendon, patient to perform single and double heel raise No pain on palpation of the Achilles tendon. Negative palpable deficits of the Achilles tendon Normal range of motion of the ankle joint and subtalar joint DERMATOLOGICAL:.No masses or skin lesions noted. Normal skin temperature, normal skin turgor. BIOMECHANICS: Ankle ROM WNL, STJ ROM wnl, MTJ ROM wnl, 1st MPJ ROM wnl. IMAGING: IMPRESSION: 1. Plantar fascial fibromatosis PLAN: Pt was seen and examined, history reviewed. Treatment options were discussed and reviewed including stretching exercises demonstrated for patient anti-inflammatory medications steroid injections orthotics and insoles Recommendations given for prefabricated insoles Referral offered physical therapy patient declined Prescription given for anti-inflammatory medication Mobic X-rays reviewed Follow-up in 4 to 6 weeks Kenneth Belcher DPM [1] Patient Active Problem List Diagnosis B12 deficiency Idiopathic thrombocytopenia purpura (CMS/HCC V24, CMS/HCC V28) Mixed hyperlipidemia Dyspnea on exertion Hypokalemia [2] Outpatient Medications Marked as Taking for the 09/02/25 encounter (Office Visit) with Kenneth Belcher DPM Medication Sig Dispense Refill albuterol HFA (PROAIR [...] the skin 1 (one) time per week. [3] Allergies Allergen Reactions Promethazine Hcl ANXIOUS AND DIZZY documented in this encounter Plan of Treatment Upcoming Encounters Date Type Department Care Team (Late st Contact Info) Description 10/05/2025 2:15 PM EST Office Visit Orthopedic Surgery [place] [address] [phone] Kenneth Belcher DPM [address] [phone] 09/02/2026 10:00 AM EST Office Visit Adult Medicine [address] [phone] Janine Fleming PA [address] [place] [address] documented as of this encounter Visit Diagnoses Diagnosis Plantar fascial fibromatosis- Primary Equinus contracture of ankle documented in this encounter Orders Outpatient Referral Count Last Ordered Date Ordered Date AMB REFERRAL TO PODIATRY 1 09/02/2025 documented in this encounter Additional Health Concerns Assessment Noted Time PHQ-9 Depression Total Score: 0 09/01/20 25 10:07 AM EST documented as of this encounter Care Teams Cutting Torch Operator Relationship Specialty Start Date End Date Mikhail Forte MD [address] [place] [address] PCP - General 03/23/23 documented as of this encounter
--- NOTE | 2025-09-04 09:13 | A.OFFVIS_ITS ---
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 She is on Depo-Provera and has been on it for many years she used it after all of her pregnancies and between these and just went off of it to get and it has worked very well for her she does not feel like she has any negative side effects she does not recall any conversations about not being on it for a long period of time. From time to time she does think about getting her tubes tied she says her periods were normal Depo. She said there were attempts to remove a polyp but it was too painful for her so she is not sure what happened after that. 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 [facility] Medical History Thrombocytopenia Cervical polyp Surveillance for Depo-Provera contraception Family History Maternal Grandmother Diabetes Mother Diabetes Social History Household Members: Children Housing: House Alcohol intake: current Alcohol intake frequency: holidays/special occasions only Patient Tobacco Use Status: Never used Tobacco Substance Use Type: Marijuana service: No Current occupational status: employed Sexual orientation: Straight/Heterosexual Female Reproductive History Menstrual Age of Menarche: 8 control method: progesterone injection Total pregnancies: 3 Number of Living Children: 3 Physical Exam Vital Signs: Last Vital Signs BP 122/78 09/04/25 09:19 BMI result Body Mass Index 38.7 Const General: healthy appearing, comfortable, no acute distress, well developed and alert Nutritional Appearance: average body habitus Orientation/consciousness: patient oriented x3 Limitations: no limitations HEENT Head: Yes normocephalic Neck Neck: Yes normal visual inspection Chest Chest palpation & inspection: normal inspection of the chest Breast/axilla inspection: normal inspection of the breasts and normal inspection of the axillae Breast/axilla palpation: normal palpation of the breasts and normal palpation of the axillae Resp Effort & Inspection: normal respiratory effort GI Inspection: Yes normal to inspection, No Abdominal wall edema and No distended Palpation (GI): Soft to palpation and nontender Other: External exam within normal limits pink healthy vagina with no abnormal discharge cervix multiparous pink smooth very healthy appearing very slightly friable with Pap from internal os only testing for STIs done with the exam as she accepted the offer. Cervix long close thick mobile nontender uterus midposition nontender nonenlarged adnexa nontender nonenlarged very good tone with Kegel. General: Yes bladder normal to palpation External Female Exam: normal external appearance and normal appearance of the urethra Speculum Exam - Vagina: normal appearance of the vagina, normal palpation and normal vaginal discharge Speculum Exam - Cervix: normal appearance of the cervix, normal palpation and nontender Bimanual exam- vagina & uterus: normal bimanual exam, normal palpation, uterine size normal, bladder normal to palpation, consistency normal, normal palpation, uterine mobility normal, uterine shape normal, No Cervical tenderness present, non-tender and no cervical motion tenderness Bimanual Exam- Adnexa, other: normal adnexae, no masses, normal and No adnexal tenderness Neuro General: patient oriented x3 Assessment & Plan Assessment & Plan (1) Encounter for management and injection of depo-Provera: Code(s): Z30.42 - Encounter for surveillance of injectable contraceptive Category: Medical (2) Surveillance for Depo-Provera contraception: Code(s): Z30.42 - Encounter for surveillance of injectable contraceptive Category: Medical (3) Encounter for well woman exam with routine gynecological exam: Code(s): Z01.419 - Encounter for gynecological examination (general) (routine) without abnormal findings Category: Medical (4) Contraception management: Comment: Will restart Depo-Provera after 2 weeks of no UPI, and negative preg test. Consideration to use of Mirena long-term recommended... Code(s): Z30.9 - Encounter for contraceptive management, unspecified Category: Medical (5) Screening for malignant neoplasm of cervix: Code(s): Z12.4 - Encounter for screening for malignant neoplasm of cervix Category: Medical Plan -----Discussed in this visit the following: healthy balanced diet, regular and consistent exercise, getting recommended health screens, doing the best she can for her particular health concerns, kegel exercises, pap smear screening and followup recommendations, mammography screening and SBE, normal changes in cycles in her life stage--- .----I reviewed available options for Control Methods and their associated side effect profiles. In particular, we discussed the method most of interest to her. She has been on the Depo for years I did discuss that it generally is not recommended to stay on it for very long time and there is a theoretical concern about not building up bones because of the effects of the Depo-Provera. However she has had no difficulty with it intends to stay on it for now. She sometimes contemplates getting her tubes tied prefer now it works for her and she is not experiencing any negative side effects. Discussed that probably this conversation will continue at future visits. Orders: Orders HPV High risk Today Z01.419 - Encounter for gynecological examination (general) (routine) without abnormal findings Pap Smear Today Z01.419 - Encounter for gynecological examination (general) (routine) without abnormal findings Bacterial Vaginosis Panel Today Z11.3 - Encounter for screening for infections with a predominantly sexual mode of transmission CT NG by PCR Vag/Cerv Today Z11.3 - Encounter for screening for infections with a predominantly sexual mode of transmission Medications: Refilled medroxyprogesterone (Depo-Provera) 150 mg IM Q12W 1 mL 4RF 3 months Coding Level of Care Code Est Pt Prev Care [id number]([id number]) Diagnoses Encounter for management and injection of depo-Provera Z30.42 Surveillance for Depo-Provera contraception Z30.42 Encounter for well woman exam with routine gynecological exam Z01.419 Contraception management Z30.9 Screening for malignant neoplasm of cervix Z12.4
[2025-09-04 09:19] VITALS: BP 122/78; BMI 38.7
--- OUTSIDE RECORDS SUMMARY | 2025-09-04 09:39 | XMS_ITS | Clinical Summary ---
Author Organization [employer] Address [address] [facility] [address] [place] [address] Care Team Providers Care Electric Power Line Examiner Name Role Phone Unavailable Primary Care Provider [...] patient's age to complete this topic [place] [address] [address] [place] [address] STANDARD
--- OUTSIDE RECORDS SUMMARY | 2025-09-04 09:39 | XMS_ITS | Clinical Summary ---
Author Organization [address] Address [address] [place] [phone] Phone Care Team Providers Care Scallop Raker Name Role Phone Mikhail Forte MD Primary Care Pr ovider Allergies Active Allergy Reactions Criticality Noted Date Comments Promethazine Hcl 09/18/2007 ANXIOUS AND DIZZY Medications medroxyPROGESTERone 150 mg/mL injection Inject 1 mL into the muscle Every 3 Months. 9 Active romiPLOStim (Nplate) 250 mcg recon solnIndications:Idio pathic thrombocytopenia purpura (CMS/HCC V24, CMS/HCC V28) Inject under the skin 1 (one) time per week. 5 Active albuterol HFA (PROAIR HFA ; PROVENTIL HFA ; VENTOLIN HFA) 90 mcg/actuation inhalerIndications:D yspnea on exertion Inhale 1 puff by mouth every 6 (six) hours if needed for wheezing. 18 g 2 5 Active cyanocobalamin (VITAMIN B-12) 1,000 mcg tablet Take 1 tablet (1,000 mcg total) by mouth 1 (one) time each day. 90 tablet 1 5 Active meloxicam (MOBIC) 15 mg tablet Take 1 tablet (15 mg total) by mouth 1 (one) time each day. 30 tablet 1 5 026 Active albuterol HFA (PROAIR HFA ; PROVENTIL HFA ; VENTOLIN HFA) 90 mcg/actuation inhalerIndications:D yspnea on exertion Inhale 1 puff by mouth every 6 (six) hours if needed for wheezing. 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 9) with comorbidity 09/18/2007 09/01/2025 Assessment & Plan (10/27/2024 12:18 PM EST): As above Encounters Date Type Department Care Team Description 09/02/2025 9:30 AM EST Office Visit Orthopedic Surgery - [place] [address] [facility] [address] [place] [address] Kenneth Belcher, DPM Plantar fascial fibromatosis (Primary Dx); Equinus contracture of ankle 09/01/2025 10:00 AM EST Office Visit Adult Medicine [address] [phone] Janine Fleming PA Annual physical exam (Primary Dx); Idiopathic thrombocytopenia purpura (CMS/HCC V24, CMS/HCC V28); Dyspnea on exertion; Morbid obesity with BMI of 40.0-44.9, adult (CMS/HCC V24, CMS/HCC V28); Mixed hyperlipidemia; B12 deficiency from Last 3 Months Immunizations Immunization Administration [...] blood, Rh positive; COMMENT: per d/c summary [facility] June 2023 Family History Medical History Relation [...] for your loved ones. For example, director child development center or elderly care for an older adult? [...] on file Sexual Orientation Not on file Last Filed Vital Signs Vital Sign Reading Time Taken Comments Blood Pressure 111/76 09/01/2025 10:02 AM EST Pulse 94 09/01/2025 10:02 AM EST Temperature 36.1 C (97 F) 09/01/2025 10:02 AM EST Respiratory Rate 20 09/01/2025 10:02 AM EST Oxygen Saturation 99% 05/29/2025 9:47 AM EDT Inhaled Oxygen Concentration - - Weight 97.1 kg (214 lb) 09/01/2025 10:02 AM EST Height 152.4 cm (5') 09/01/2025 10:02 AM EST Body Mass Index 41.79 09/01/2025 10:02 AM EST Plan of Treatment Upcoming Encounters Date Type Department Care Team (Late st Contact Info) Description 10/05/2025 2:15 PM EST Office Visit Orthopedic Surgery - [place] [address] [phone] Kenneth Belcher, DPM [address] [phone] 09/02/2026 10:00 AM EST Office Visit Adult Medicine [address] [phone] Janine Fleming PA [address] [place] [address] Health Maintenance Due Date Last Done Comments HPV Vaccines (1 - 3-dose SCD M series) 2015 Cervical Cancer Screening: Pap Smear 04/22/2022 04/22/2019, 04/22/2019 Influenza Vaccine (#1) 2025 0, 08/31/2006 Postponed from 05/18/2025 (Patient Refused) Social Influencers of Health Screening 09/01/2026 09/01/2025 DTaP,Tdap,and Td Vaccines (2 - Td or Tdap) 05/06/2029 05/06/2019 Cholesterol Screening (Lipid Panel) 10/27/2029 10/27/2024, 03/06/2024, 03/06/2024 RSV Immunization Adult Patients (1 - 1-dose 75+ series) 2063 HIV Screening Completed 09/19/2017 COVID-19 Vaccine Discontinued 02/08/2021, 01/18/2021 Hepatitis C Screening Completed 10/27/2024 Depression Screening Completed 09/01/2025 HIB Vaccines Aged Out No longer eligi [...] 49 Years) Aged Out No longer eligible b ased on patient's age to complete this topic RSV Immunization Patients Under 20 months Aged Out No longer eligible b ased on patient's age to complete this topic Varicella Vaccines Aged Out No longer eligible based on patient's age to complete this topic Procedures Procedure Name Priority Date/Time Associated Diagnosis Comments HEPATITIS C ANTIBODY Routine 10/27/2024 11:37 AM EST Need for hepatitis C screening test LIPID PANEL WITH REFLEX TO DIRECT LDL Routine 10/27/2024 11:37 AM EST Mixed hyperlipidemia PAP SMEAR Routine 04/22/2019 HM HIV SCREENING Routine 09/19/2017 from Last 3 Months or Most Recently Relevant to Health Maintenance Results * Hepatitis C antibody (10/27/2024 11:37 AM EST) Pathologist [facility] Hepatitis C Antibody Negative Negative LAB CHEMISTRY METHOD 10/27/2024 4:44 PM [facility] Blood Venous blood specimen / Unknown Venipuncture / Unknown 10/27/2024 11:37 AM EST 10/27/2024 11:37 AM EST Mikhail Forte MD LAB BLOOD ORDERA BLES Final Result [facility] [address] [place] [address], * (ABNORMAL) Lipid panel with reflex to direct LDL (10/27/2024 11:37 AM EST) [facility] Cholesterol 130 0 - 200 [...] 4.4 LAB CHEMISTRY METHOD 10/27/2024 4:20 PM [facility] Blood Venous blood specimen / Unknown Venipuncture / Unknown 10/27/2024 11:37 AM EST 10/27/2024 11:37 AM EST Mikhail Forte MD LAB BLOOD ORDERA BLES Final Result [facility] [address] [place] [address], [place] [phone] * Pap smear (04/22/2019) 04/22/2019 Narrative HISTORICAL TESTING LAB RESULTING AGENCY - 05/01/2019 6:21 PM EDT [id number] THINPREP PAP, IMAGED: NEGATIVE FOR SQUAMOUS INTRAEPITHELIAL LESION AND MALIGNANCY . REACTIVE CELLULAR CHANGES. CLUE CELLS ARE PRESENT. SARAHI GONZALEZ(ASCP) (CASE SCREENED 04 25 2019) SHEEBA STANFORD [...] LAB RESULTING AGENCY * HIV Screening (09/19/2017) HIV Screening Abstracted Debi Provider HEALTH MAINTENANCE Final Result from Last 3 Months or Most Recently Relevant to Health Maintenance Insurance [facility] [employer] Care Teams Scallop Raker Relationship Specialty Start Date End Date Mikhail Forte MD [address] [place] [phone] PCP - General 03/23/23
== END 2025-09-04 10:36 | disposition home or self-care (01) ==
LOC: HO.HWS 09:09
PROVIDERS: Visit Provider Advanced Practice Midwife
DX: Z01.419 Encounter for gynecological examination (general) (routine) without abnormal findings (principal); Z30.42 Encounter for surveillance of injectable contraceptive; Z30.9 Encounter for contraceptive management, unspecified; Z12.4 Encounter for screening for malignant neoplasm of cervix
CPT/HCPCS: 99395; 99459

== ENCOUNTER 2025-09-04 09:09 | Outpatient (REF) | payer OTHER, SELFPAY ==
[2025-09-05 01:33] LABS: Bacterial Vaginosis PCR POSITIVE (Negative); Candida Group PCR NOT DETECTED (Not Detect); Candida glab krusei PCR NOT DETECTED (Not Detect); Trichomonas vaginalis PCR NOT DETECTED (Not Detect)
[2025-09-05 02:04] LABS: CT PCR NOT DETECTED (Not Detect.); NG PCR NOT DETECTED (Not Detect.)
== END 2025-09-04 09:10 | disposition home or self-care (01) ==
LOC: HO.LNP 09:09
PROVIDERS: Visit Provider Advanced Practice Midwife
DX: Z01.419 Encounter for gynecological examination (general) (routine) without abnormal findings (principal); Z20.2 Contact with and (suspected) exposure to infections with a predominantly sexual mode of transmission; Z30.42 Encounter for surveillance of injectable contraceptive
CPT/HCPCS: 81515; 87491; 87591; 87626; 88175

== ENCOUNTER 2025-09-07 09:54 | Outpatient (AMB) | payer OTHER, SELFPAY ==
--- OUTSIDE RECORDS SUMMARY | 2025-09-02 09:30 | XMS_ITS | Encounter Summary ---
Author Organization [employer] Address [address] [place] [address] Care Team Providers Care Vice President Research Name Role Phone Mikhail Forte MD Primary Care Pr ovider Reason for Visit * Reason Comments Consult Left ankle pain * Consultation (Routine) - Closed Specialty Diagnoses / Procedures Referred By Contact Referred To Contact Podiatry / Orthopaedic Surgery Diagnoses Pain in left ankle and joints of left foot Plantar fasciitis of left foot Mikhail Forte MD [address] [place] [phone] Phone: tel: fax: Kenneth Belcher DPM [address] [phone] Phone: tel: fax: Referral ID Status Reason Start Date Expiration Date V isits Requested Visits Authorized [id number] Closed Specialty Services Required 05/29/2025 05/29/2026 1 1 Encounter Details Date Type Department Care Team (Late st Contact Info) Description 09/02/2025 9:30 AM EST Office Visit Orthopedic Surgery - [place] [address] [phone] Kenneth Belcher DPM [address] [phone] Plantar fascial fibromatosis (Primary Dx); [...] care for your loved ones. For example, childrens club attendant or elderly care for an older adult? [...] through Care Everywhere. * Plantar Fasciitis: Exercises (Indonesian) documented in this encounter Ordered Prescriptions Prescription [...] the 09/02/25 encounter (Office Visit) with Kenneth eBlcher DPM Medication Sig Dispense Refill albuterol HFA [...] 2:15 PM EST Office Visit Orthopedic Surgery [place] [address] [phone] Kenneth Belcher DPM [address] [phone] 09/02/2026 10:00 AM EST Office Visit Adult Medicine [address] [phone] Janine Fleming PA [address] [place] [address] documented as of this encounter Visit Diagnoses Diagnosis Plantar fascial fibromatosis- Primary Equinus contracture of ankle documented in this encounter Orders Outpatient Referral Count Last Ordered Date Fir st Ordered Date AMB REFERRAL TO PODIATRY 1 09/02/2025 documented in this encounter Additional Health Concerns Assessment Noted Time PHQ-9 Depression Total Score: 0 09/01/20 25 10:07 AM EST documented as of this encounter Care Teams Vice President Research Relationship Specialty Start Date End Date Mikhail Forte MD [address] [place] [address] PCP - General 03/23/23 documented as of this encounter
[2025-09-07 10:10] VITALS: BMI 39.5
--- NOTE | 2025-09-07 10:10 | AM.OFFVISNUR ---
Vital Signs 09/07/25 10:10 Height 5 ft Weight 202 lb 6 oz BMI 39.5 Intake Visit Reasons: DEPO Allergies promethazine (From [facility]) Allergy (Intermediate, Verified 09/04/25 09:17) Agitated Nursing Note Armida is here today for her scheduled Depo-Provera inj. She denies any problems or concerns. Pt to follow up in 12 wks. Office Procedures Depo Questionnaire If YES to any of the following questions, please consult a provider. Date of last injection: 06/17/25 Date of last gynecology exam: 09/04/25 Menstrual pattern since last injection has been: Not Applicable Irregular bleeding?: No Breast lumps or other breast changes?: No Changes in weight or appetite?: No Depression or changes in mood?: No Abnormal hair growth or loss?: No Skin problems (rash, acne, discoloration)?: No Pain at the injection site?: No Headaches?: No Nervousness?: No Abdominal pain or cramping?: No Dizziness or nausea?: No Fatigue or weakness?: No Decrease in sexual drive?: No Chest pain or shortness of breath?: No Swelling in arms or legs?: No Form completed by?: Jaycee Ritter LPN Office Meds Depo-Provera 150 mg/mL intramuscular syringe Performing Provider: Celeste Pino CNM Performing Location: [facility] Administered by: Maryana Ritter LPN on 09/07/25 10:11 Dose Route Admin Location Dispensed Lot Number Expiration Date [facility] [employer] 150 mg IM LT deltoid 1 mL [id number] 09/16/27 15445-741-53 [facility] Total Dispensed Waste 1 mL 0 % Assessment & Plan Assessment & Plan Orders: Orders AMB Medroxyprogesterone Injection Patient Supplied Today Z30.42 - Encounter for surveillance of injectable contraceptive Coding Level of Care Code Established Pt Est Pt Level 1 (81017) Patient Type Established History Problem Focused Exam Problem Focused Medical Decision Making Straight Forward Time Spent (min) 20
--- OUTSIDE RECORDS SUMMARY | 2025-09-07 11:41 | XMS_ITS | Clinical Summary ---
Author Organization [address] Address [address] [place] [phone] Phone Care Team Providers Care Beet Worker Name Role Phone Mikhail Forte MD Primary [...] (10/27/2024 12:18 PM EST): Continue follow-up with [facility] hematology and treatment prior to [facility] hematology Orders: Comprehensive metabolic panel; Future CBC and differential; Future Resolved Problems Problem Noted Date Diagnosed Date Resolved Date Class 2 obesity 05/29/2025 09/01/2025 Severe obesity (BMI 35.0-39. 9) with comorbidity 09/18/2007 09/01/2025 Assessment & Plan (10/27/2024 12:18 PM EST): As above Encounters Date Type Department Care Team Description 09/02/2025 9:30 AM EST Office Visit Orthopedic Surgery - [facility] [address] [facility] [address] [place] [address] Kenneth Belcher, DPM Plantar fascial fibromatosis (Primary Dx); Equinus contracture of ankle 09/01/2025 10:00 AM EST Office Visit Adult Medicine [address] [phone] Janine Fleming PA Annual physical exam (Primary [...] blood, Rh positive; COMMENT: per d/c summary [facility] June 2023 Family History Medical History Relation [...] for your loved ones. For example, child welfare counselor or elderly care for an older adult? [...] PM EST Office Visit Orthopedic Surgery - [facility] [address] [phone] Kenneth Belcher, DPM [address] [phone] 09/02/2026 10:00 AM EST Office Visit Adult Medicine [address] [phone] Janine Fleming PA [address] [place] [address] Health Maintenance Due Date Last Done Comments [...] C antibody (10/27/2024 11:37 AM EST) Pathologist [facility] Hepatitis C Antibody Negative Negative LAB CHEMISTRY METHOD 10/27/2024 4:44 PM [facility] Blood Venous blood specimen / Unknown Venipuncture / Unknown 10/27/2024 11:37 AM EST 10/27/2024 11:37 AM EST Mikhail Forte MD LAB BLOOD ORDERA BLES Final Result [facility] [address] [place] [address], * (ABNORMAL) Lipid panel with reflex to direct LDL (10/27/2024 11:37 AM EST) [facility] Cholesterol 130 0 - 200 mg/dL LAB CHEMISTRY METHOD 10/27/2024 4:20 PM [facility] Triglycerides 182(H) 0 - 150 mg/dL LAB CHEMISTRY METHOD 10/27/2024 4:20 PM [facility] HDL 35(L) >=40 mg/dL LAB CHEMISTRY METHOD 10/27/2024 4:20 PM [facility] LDL Calculated 59 0 - 100 mg/dL LAB CHEMISTRY METHOD 10/27/2024 4:20 PM [facility] VLDL Cholesterol Thong 36.4 mg/dL LAB CHEMISTRY METHOD 10/27/2024 4:20 PM [facility] Non HDL Chol. (LDL+VLDL) 95 <145 mg/dL LAB CHEMISTRY METHOD 10/27/2024 4:20 PM [facility] Chol/HDL Ratio 3.7 0.0 - 4.4 LAB CHEMISTRY METHOD 10/27/2024 4:20 PM [facility] Blood Venous blood specimen / Unknown Venipuncture / Unknown 10/27/2024 11:37 AM EST 10/27/2024 11:37 AM EST Mikhail Forte MD LAB BLOOD ORDERA BLES Final Result [facility] [address] [place] [address], [place] [phone] * Pap smear (04/22/2019) 04/22/2019 Narrative HISTORICAL TESTING LAB RESULTING AGENCY - 05/01/2019 6:21 PM EDT [id number] THINPREP PAP, IMAGED: NEGATIVE FOR SQUAMOUS INTRAEPITHELIAL [...] Most Recently Relevant to Health Maintenance Insurance [facility] [employer] Care Teams Beet Worker Relationship Specialty Start Date End Date Mikhail Forte MD [address] [place] [phone] PCP - General 03/23/23
--- OUTSIDE RECORDS SUMMARY | 2025-09-07 11:41 | XMS_ITS | Clinical Summary ---
Author Organization [employer] Address [address] [facility] [address] [place] [address] Care Team Providers Care Food Or Baggage Handling Rampman Name Role Phone Unavailable Primary Care Provider [...] patient's age to complete this topic [place] [address] STANDARD
== END 2025-09-07 10:10 | disposition home or self-care (01) ==
LOC: HO.HWS 09:54
PROVIDERS: Visit Provider Advanced Practice Midwife
DX: Z30.42 Encounter for surveillance of injectable contraceptive (principal)

== ENCOUNTER → 2025-09-07 09:54 | Outpatient (BNVA) | payer OTHER, SELFPAY | PROVIDERS: Visit Provider Advanced Practice Midwife | DX: Z30.42 Encounter for surveillance of injectable contraceptive (principal) | CPT/HCPCS: 96372; 99211; J1050 ==